=== PATIENT | male | born 1940 | race Caucasian/White ===

== ENCOUNTER → 2017-10-06 17:16 | Outpatient (CLI) | payer MEDICARE, OTHER, SELFPAY ==
[2017-04-04 15:22] VITALS: BMI 29.0
--- NOTE | 2017-10-06 17:21 | RAD_ITS ---
STUDY: X-RAY CHEST REASON FOR EXAM: Male, 77 years old. Cough. Positive for fluid. TECHNIQUE: PA and lateral views of the chest. COMPARISON: August 14, 2017 FINDINGS: The lungs are clear and expanded. There is no demonstrated pleural abnormality. Normal size heart. There are sternotomy wires in place. Normal mediastinum and raul. Normal visualized pulmonary arteries. Normal visualized aortic arch and descending thoracic aorta. There are mild degenerative changes of the thoracic spine. Normal visualized ribs, clavicles, and shoulders. There is no demonstrated abnormality of the visualized soft tissue structures of the upper abdomen. RAD/Chest PA and Lateral IMPRESSION: No acute cardiopulmonary process. Electronically Signed: Christi Bell MD at 18:51 EST Tel , Service support ,
== END ==
PROVIDERS: Family Provider Family Medicine; PCP Family Medicine; Visit Provider Family Medicine
DX: R05 Cough (principal); E11.9 Type 2 diabetes mellitus without complications
CPT/HCPCS: 71046

== ENCOUNTER → 2017-11-04 10:38 | Outpatient (CLI) | payer MEDICARE, OTHER, SELFPAY ==
[2017-04-04 15:22] VITALS: BMI 29.0
[2017-11-04 11:34] LABS: Hemoglobin A1c 7.5 % (4.2-6.3)
[2017-11-04 11:40] LABS: AST(SGOT) 15 U/L (15-37); Alanine Aminotransfer ALT/SGPT 18 U/L (16-61); Albumin, Serum 3.8 g/dL (3.2-5.0); Alkaline Phosphatase 64 U/L (45-117); Bilirubin, Direct 0.07 mg/dL (0.00-0.30); Cholesterol 211 mg/dL (200); Globulin 3.4 g/dL (2.2-4.2); High Density Lipoprotein 51 mg/dL; Protein, Total 7.2 g/dL (6.4-8.2); Triglycerides 229 mg/dL; Very Low Density Lipoprotein 46 mg/dL (5-40)
== END ==
PROVIDERS: Family Provider Family Medicine; PCP Family Medicine; Visit Provider Nurse Practitioner Family
DX: E11.9 Type 2 diabetes mellitus without complications (principal); E78.5 Hyperlipidemia, unspecified; Z79.899 Other long term (current) drug therapy
CPT/HCPCS: 36415; 80061; 80076; 83036

== ENCOUNTER → 2018-03-24 11:07 | Outpatient (CLI) | payer MEDICARE, OTHER, SELFPAY ==
[2017-04-04 15:22] VITALS: BMI 29.0
[2018-03-24 13:06] LABS: AST(SGOT) 16 U/L (15-37); Alanine Aminotransfer ALT/SGPT 20 U/L (16-61); Albumin, Serum 3.8 g/dL (3.2-5.0); Alkaline Phosphatase 62 U/L (45-117); Anion Gap 8 (5-15); BUN 19 mg/dL (7-18); Bilirubin, Direct 0.08 mg/dL (0.00-0.30); Calcium,Total 8.6 mg/dL (8.5-10.1); Chloride 104 mmol/L (98-107); Cholesterol 178 mg/dL (200); EST Glomerular Filtration Rate 77 mL/min (>60); Est Glom Filt Rate - Afr Amer 93 mL/min (>60); Globulin 3.3 g/dL (2.2-4.2); Glucose 125 mg/dL (74-106); High Density Lipoprotein 49 mg/dL; Potassium 4.2 mmol/L (3.5-5.1); Protein, Total 7.1 g/dL (6.4-8.2); Sodium Level 141 mmol/L (136-145); Thyroid Stim Hormone (TSH) 1.06 uIU/mL (0.358-3.74); Triglycerides 247 mg/dL; Very Low Density Lipoprotein 49 mg/dL (5-40)
== END ==
PROVIDERS: Nurse Practitioner Family; Family Provider Family Medicine; PCP Family Medicine; Visit Provider Family Medicine
DX: E11.9 Type 2 diabetes mellitus without complications (principal); E78.5 Hyperlipidemia, unspecified; Z79.899 Other long term (current) drug therapy
CPT/HCPCS: 80048; 80061; 80076; 84443

== ENCOUNTER 2018-05-05 11:00 | Outpatient (RCR) | payer MEDICARE, OTHER, SELFPAY ==
[2017-04-04 15:22] VITALS: BMI 29.0
--- NOTE | 2018-03-13 14:30 | HP.PTEVAL_ITS ---
Patient's Visit Information TODD ROSARIO is a 77 year old M referred to Physical Therapy by aSge Anderson with a diagnosis of gait abnormality. Date of Evaluation: 03/13/18 Physical Therapist: Rei Duval PT, - Visit Plan Frequency: 2-3x /Week Duration: 4 Weeks Plan: B LE strengtheing, balance and proprio, nustep, and HEP - Subjective Subjective: Pt reports he has noticed balance difficulty over the past 5 mos. Pt reports he has the most difficulty with standing after sitting for a long period of time. Pt reports he has steadily noticed improvements over the past 3 weeks, but pt notes he is still very nervous about falling. Pt reports he has not had any recent falls at this time, but notes he stumbles a lot. Pt reports he has good feeling in his feet, and notes he is not light headed and does not get dizzy on a normal day. Pt reports he has a lot of diff with walking through his yard. Pt also doesnt feel safe in his shower even though he does have grab bars. Pt reports occasional LBP, but none today. - Objective Neuro: B LE sensation is WNL to light touch. B patellar tendon reflex= 1/3. MMT : B LE's are 4/5 throughout. FGA: 37% disability CJ - Balance Scores Functional Gait Assessment Score: 19 % Disability: 36.6700 - Goals Goal 1:: Increase B LE strength x 1 grade to aid with stair negotiation Goal Time Frame: 4-6 Weeks Goal 2:: Increase FGA score x 15% to aid with preventing future stumbles Goal Time Frame: 4-6 Weeks Goal 3:: I with HEP Goal Time Frame: 4-6 Weeks - Rehabilitation Potential Physical Therapy Diagnosis: Pt has LE weakness and gait difficulty secondary to debilitation Rehabilitation Potential: Good - Anticipated Interventions Patient/Client Instruction: Educate patient on: Condition, Plan of Care For the Purpose of:: To improve self management Therapeutic Exercise to Include: Strength training, Endurance training, Balance training, Gait and locomotor training, Dynamic Lumbar Stabilization For the Purpose of:: To improve muscle performance and motor function, To increase tolerance to activity/condition/position, To improve gait and locomotor functions Thank you for the opportunity to evaluate your patient. For Medicare and Medicare HMO plans, please review the plan of care and approve it. It will need to be FAXED BACK to us at [phone] for Medicare purposes. Please let me know if there are questions or concerns regarding this plan of care. Physician Signature: Date:
--- NOTE | 2018-04-10 11:02 | HP.PTREVAL ---
Sage Anderson, It has been my pleasure to treat TODD ROSARIO over the last 10 visits for gait abnormality. Please see the progress note below for an update on the physical therapy plan of care! Subjective: Pt reports no pain this date Objective/Function: B LE strength now 4/5 throughout. Pt is progressing with balance, but notes occasional LOB with dynamic gait. Pt is progressing well toward Rx goals Plan Plan: cont 2x's per week x 4 weeks Goals Goal 1:: Increase B LE strength x 1 grade to aid with stair negotiation Goal Time Frame: 4-6 Weeks Goal 2:: Increase FGA score x 15% to aid with preventing future stumbles Goal Time Frame: 4-6 Weeks Goal 3:: I with HEP Goal Time Frame: 4-6 Weeks Anticipated Interventions Patient/Client Instruction: Educate patient on: Condition, Plan of Care For the Purpose of:: To improve self management Therapeutic Exercise to Include: Strength training, Endurance training, Balance training, Gait and locomotor training, Dynamic Lumbar Stabilization For the Purpose of:: To improve muscle performance and motor function, To increase tolerance to activity/condition/position, To improve gait and locomotor functions Please do not hesitate to contact me at [phone] by phone or if you have questions or concerns regarding this new plan of care! Sincerely, Rei Duval, PT,
--- NOTE | 2018-07-02 10:58 | HP.PT.NRP ---
HP - Discharge Summary (1) - Patient Information TODD ROSARIO was seen in my office for initial evaluation on 03/13/18. The following Plan of Care was established for this patient: Initial Frequency: 2-3x /Week Initial Duration: 4 Weeks - Anticipated Interventions Patient/Client Instruction: Educate patient on: Condition, Plan of Care For the Purpose of:: To improve self management Therapeutic Exercise to Include: Strength training, Endurance training, Balance training, Gait and locomotor training, Dynamic Lumbar Stabilization For the Purpose of:: To improve muscle performance and motor function, To increase tolerance to activity/condition/position, To improve gait and locomotor functions This patient was last seen in our office . Pertinent comments regarding their Physical therapy will appear below: Pt was treated for 16 visits for his gait abnormality through the date of 05/05/18. Pt has not returned through todays date and is therefore discontinued at this time. At this point I will be discontinuing this patient from physical therapy. I would be happy to see this patient again in the future if found appropriate by the physician. Thank you! Rei Duval, PT,
== END 2018-05-05 19:00 | disposition home or self-care (01) ==
LOC: PT 11:00
PROVIDERS: Family Provider Family Medicine; PCP Family Medicine; Visit Provider Family Medicine
DX: R26.89 Other abnormalities of gait and mobility (principal)
CPT/HCPCS: 97110; 97161; 97162; 97530; G8978; G8979

== ENCOUNTER → 2018-07-06 13:00 | Outpatient (CLI) | payer MEDICARE, OTHER, SELFPAY ==
[2017-04-04 15:22] VITALS: BMI 29.0
[2018-07-06 14:55] LABS: AST(SGOT) 18 U/L (15-37); Alanine Aminotransfer ALT/SGPT 24 U/L (16-61); Albumin, Serum 4.1 g/dL (3.2-5.0); Alkaline Phosphatase 57 U/L (45-117); Bilirubin, Direct 0.11 mg/dL (0.00-0.30); Cholesterol 172 mg/dL (200); Globulin 3.8 g/dL (2.2-4.2); High Density Lipoprotein 52 mg/dL; Protein, Total 7.9 g/dL (6.4-8.2); Triglycerides 153 mg/dL; Very Low Density Lipoprotein 31 mg/dL (5-40)
== END ==
PROVIDERS: Family Provider Family Medicine; PCP Family Medicine; Referring Provider Nurse Practitioner Family; Visit Provider Nurse Practitioner Family
DX: I25.10 Atherosclerotic heart disease of native coronary artery without angina pectoris (principal); I65.23 Occlusion and stenosis of bilateral carotid arteries; E78.5 Hyperlipidemia, unspecified; Z95.5 Presence of coronary angioplasty implant and graft
CPT/HCPCS: 36415; 80061; 80076

== ENCOUNTER → 2018-07-08 13:00 | Outpatient (CLI) | payer MEDICARE, OTHER, SELFPAY ==
[2017-04-04 15:22] VITALS: BMI 29.0
--- NOTE | 2018-07-08 13:02 | CDU_ITS ---
Reason For Study: vertigo Rt. Velocities/BP Lt. Velocities/BP Prox CCA 89.7/12.3 cm/sec. Prox CCA 155.0/18.9 cm/sec. Mid CCA 83.3/14.1 cm/sec. Mid CCA 103.0/13.5 cm/sec. Dist CCA 68.0/15.2 cm/sec. Dist CCA 80.9/15.2 cm/sec. Prox ICA 63.6/13.0 cm/sec. Prox ICA 51.9/11.0 cm/sec. Mid ICA 67.2/19.6 cm/sec. Mid ICA 85.6/21.1 cm/sec. Dist ICA 91.1/23.2 cm/sec. Dist ICA 104.0/22.5 cm/sec. Rt. ICA/CCA = 1.1. Lt. ICA/CCA = 104.0/103.0=1.0. Prox ECA 96.2/8.21 cm/sec. Prox ECA 123.0/7.62 cm/sec. Rt. Vert. 53.4/14.1 cm/sec. Lt. Vert. 63.6/11.0 cm/sec. Right Extracranial There is intimal thickening but no significant atherosclerotic plaque noted in the right common carotid artery. There is homogeneous, smooth atherosclerotic plaque noted in the right internal carotid artery. There is homogeneous, smooth atherosclerotic plaque noted in the right external carotid artery. Antegrade flow is noted in the right vertebral artery. Left Extracranial There is intimal thickening but no significant atherosclerotic plaque noted in the left common carotid artery. There is heterogeneous, smooth atherosclerotic plaque noted in the left internal carotid artery. There is no significant atherosclerotic plaque noted in the left external carotid artery. Antegrade flow is noted in the left vertebral artery. Procedure Carotid Duplex 28215. The exam was diagnostic. Exam performed in department. Interpretation Summary Minimal smooth plague at the proximal right internal carotid with <50% stenosis. Mild plague at the proximal right external carotid. Minimal smooth plague at the proximal left internal carotid with <50% stenosis Normal flow left external carotid Patent and antegrade vertebrals bilaterally Ordering Physician: Isidro Xiong Referring Physician: Sage Anderson Performed By: Rosalia Collazo RDCS, RVT
--- NOTE | 2018-07-08 13:02 | ECHOCS_ITS ---
Reason For Study: SOB Procedure This was a 2D Doppler, Color Flow transthoracic echocardiogram. Contrast injection was performed. Exam performed in department. Left Ventricle Normal LV size. The estimated ejection fraction is 50 %. Stage 1 diastolic dysfunction. [place] : Hypokinetic. Right Ventricle Normal RV size. Normal systolic function. Atria Normal left atrium. Normal right atrium. Mitral Valve Normal mitral valve. Mild (1+) eccentric mitral valve insufficiency. Tricuspid Valve Normal tricuspid valve. Mild (1+) tricuspid valve insufficiency. Pulmonary artery systolic pressure is 33 mmHg. Aortic Valve Normal aortic valve. Trisinus/trileaflet aortic valve. Pulmonic Valve Normal pulmonic valve. Great Vessels Normal aortic root. The pulmonary artery is normal size. Normal inferior vena cava. Pericardium/Pleural No pericardial effusion. Medication 22 gauge I.V. with prn adaptor inserted into right arm. Diluted definity 6ml given slow IV push to enhance endocardial definition. MMode/2D Measurements & Calculations LVIDd: 4.7 cm IVSd: 0.96 cm Ao root diam: 3.2 cm LVIDs: 3.1 cm LVPWd: 0.99 cm RVDd: 3.9 cm FS: 33.1 % LAV(MOD-sp4): 46.4 ml EDV(MOD-sp4): 87.3 ml EDV(MOD-sp2): 71.2 ml ESV(MOD-sp4): 34.6 ml EF(MOD-sp2): 69.1 % EF(MOD-sp4): 60.4 % SV(MOD-sp4): 52.7 ml SV(MOD-sp2): 49.2 ml LA A4 area: 17.2 cm2 LA dimension(2D): 4.7 cm RA A4 area: 15.2 cm2 Time Measurements MV dec time: 0.26 sec Doppler Measurements & Calculations MV E max michael: 49.4 cm/sec Lat Peak E' Michael: 10.8 cm/sec Med Peak E' Michael: 4.5 cm/sec MV A max michael: 68.0 cm/sec E/E' lat: 4.6 E/E' med: 10.9 MV E/A: 0.73 Ao V2 max: 99.3 cm/sec LV V1 max: 91.7 cm/sec PA V2 max: 86.5 cm/sec Ao max P.9 mmHg LV V1 max P.4 mmHg PI end-d michael: 100.8 cm/sec TR max michael: 263.2 cm/sec TR max P.8 mmHg Interpretation Summary Normal LV size. The estimated ejection fraction is 50 %. Stage 1 diastolic dysfunction. Mild (1+) eccentric mitral valve insufficiency. Mild (1+) tricuspid valve insufficiency. Pulmonary artery systolic pressure is 33 mmHg. Contrast injection was performed. Ordering Physician: Isidro Xiong/Luc Forde Referring Physician: STACY HEATON Performed By: Migdalia Oliver, SUNITHA, RVT
== END ==
PROVIDERS: Family Provider Family Medicine; PCP Family Medicine; Referring Provider Nurse Practitioner Family; Visit Provider Nurse Practitioner Family
DX: I65.23 Occlusion and stenosis of bilateral carotid arteries (principal); I25.10 Atherosclerotic heart disease of native coronary artery without angina pectoris; I10 Essential (primary) hypertension; R06.02 Shortness of breath; R06.00 Dyspnea, unspecified; R09.89 Other specified symptoms and signs involving the circulatory and respiratory systems; I25.2 Old myocardial infarction; Z95.5 Presence of coronary angioplasty implant and graft
CPT/HCPCS: 93306; 93880; Q9957; A4216; C8929

== ENCOUNTER → 2018-09-22 11:10 | Outpatient (CLI) | payer MEDICARE, OTHER, SELFPAY ==
[2017-04-04 15:22] VITALS: BMI 29.0
--- NOTE | 2018-09-22 11:20 | MRI_ITS ---
STUDY: MRI BRAIN WITH AND WITHOUT CONTRAST (ATTENTION INTERNAL AUDITORY CANALS - I.A.C.'s) REASON FOR EXAM: Male, 78 years old. tinnitus, asymetric hearing loss left ear. TECHNIQUE: Standardized multiplanar fat and water weighted pulse sequences were obtained. 9 ml of Gadavist contrast material was administered intravenously for the contrast portion of the examination. COMPARISON: None. FINDINGS: Normal bilateral temporal bones. Normal bilateral internal auditory canals. There is no demonstrated intracanalicular or cisternal vestibular schwannoma (acoustic neuroma). There is no enhancement of the bilateral VIIth or VIIIth cranial nerves. Normal bilateral cochlea, vestibules and semicircular canals. There is mild cerebral atrophy with widening of the extra-axial spaces and ventricular dilatation. There are multiple white matter hyperintensities, distributed throughout the deep white matter tracts of the cerebral hemispheres, consistent with moderate chronic white matter ischemic changes. Normal bilateral basal ganglia. Normal thalami. Normal flow voids within the major intracranial circulation suggesting patency by spin echo criteria. Normal venous enhancement. There is no enhancing intra-axial or extra-axial abnormality. There is no extra-axial fluid accumulation. Normal sella turcica, pituitary gland, infundibular stalk, optic chiasm and hypothalamus. Normal tectal plate and pineal gland. There are chronic white matter ischemic changes of the mariela. The midbrain and medulla are otherwise normal. Normal cerebellum. Normal basal cisterns. No demonstrated orbital abnormality, within the constraints of a routine brain study. Normal visualized paranasal sinuses. Normal calvarium and skull base. Normal visualized soft tissue structures. Normal visualized upper cervical spine. MRI/Brain W/WO Contrast IMPRESSION: There is no demonstrated intracanalicular or cisternal vestibular schwannoma (acoustic neuroma). Electronically Signed: Lynda France MD at 12:03 EST Tel , Service support ,
[2018-09-22 11:51] LABS: CREATININE FINGERSTICK 1.2 mg/dL (0.70-1.30)
== END ==
PROVIDERS: Family Provider Family Medicine; PCP Family Medicine; Referring Provider Otolaryngology Otolaryngology/Facial Plastic Surgery; Visit Provider Otolaryngology Otolaryngology/Facial Plastic Surgery
DX: H93.19 Tinnitus, unspecified ear (principal); H91.90 Unspecified hearing loss, unspecified ear
CPT/HCPCS: 70553; A9585

== ENCOUNTER → 2018-10-12 06:47 | Outpatient (CLI) | payer MEDICARE, OTHER, SELFPAY ==
[2017-04-04 15:22] VITALS: BMI 29.0
[2018-09-29 13:38] VITALS: BMI 29.1
--- NOTE | 2018-10-12 09:43 | STRESSREP ---
Stress Test Report Exercise myocardial perfusion stress test. 78-year-old man with a history of coronary artery disease status post angioplasty and stenting and bypass surgery in 2014. Medications: Levoxyl, Zoloft, aspirin, pravastatin, isosorbide, Plavix. Stress protocol: Resting EKG demonstrates normal sinus bradycardia with a rate of 53 bpm resting blood pressure 118/78 mmHg. The patient exercised according to regular Juan protocol for total duration of 6 minutes. The maximum heart rate attained was 146 bpm which was 102% of maximum predicted heart rate the maximum workload was 7 metabolic equivalents. Patient maintained sinus rhythm throughout the recording. At rest there were no ST or T wave changes noted suggest ischemia. At peak exercise upsloping ST changes only were noted with no meet the criteria for ischemia. The resting blood pressure 118/78 with a peak blood pressure 152/70 mmHg. No clinical angina was noted the rate pressure product was 21,800. Myocardial perfusion protocol. 11.6 mCi of technetium 99m sestamibi was injected at rest. Patient exercised according to regular Juan protocol for total duration of 6 minutes. At peak exercise 32.7 mCi of technetium 99m sestamibi was injected stress images were obtained stress and rest images were reconstructed and compared in the short axis vertical long horizontal long axis. Gated images were also obtained per Perfusion SPECT analysis: Review of the stress images demonstrate normal uptake of tracer noted in all areas of myocardium except for small portion of the apex the resting images demonstrate a similar pattern with minimal improvement in the apex suggesting a previous infarct at the apex with minimal laura-infarct ischemia. The other mcguire appear to be normally perfused. Gated SPECT analysis: The gated ejection fraction is noted to be 58%. Conclusion: Normal exercise myocardial perfusion stress test at a moderate workload. Preserved ejection fraction.
== END ==
PROVIDERS: Family Provider Family Medicine; PCP Family Medicine; Referring Provider Internal Medicine Cardiovascular Disease; Visit Provider Internal Medicine Cardiovascular Disease
DX: R07.9 Chest pain, unspecified (principal); Z95.1 Presence of aortocoronary bypass graft
CPT/HCPCS: 78452; 93017; A9500; A4216

== ENCOUNTER → 2018-10-15 12:17 | Outpatient (CLI) | payer MEDICARE, OTHER, SELFPAY ==
[2017-04-04 15:22] VITALS: BMI 29.0
[2018-09-29 13:38] VITALS: BMI 29.1
[2018-10-15 14:12] LABS: Erythrocyte Sedimentation Rate 24 mm/hr (0-20)
[2018-10-15 14:13] LABS: Hematocrit 40.8 % (40-54); Hemoglobin 13.6 g/dl (13.0-16.5); Mean Corp Hgb Conc 33.3 g/gl (32-36); Mean Corpuscular Hgb 31.9 pg (27.0-32.0); Mean Corpuscular Volume 95.6 fL (80-94); Mean Platelet Vol. 9.7 fl (6.2-12.0); Platelet Count 194 K/mm3 (150-450); RBC Distribution Width CV 13.6 % (11.6-14.6); RBC Distribution Width SD 46.9 fl (35.1-43.9); Red Blood Count 4.27 M/mm3 (4.6-6.2); White Blood Count 5.8 K/mm3 (4.4-11.0)
[2018-10-15 14:15] LABS: Scan Indicated on CBC? Y/N NO
[2018-10-15 14:25] LABS: Vitamin B12 501 pg/mL (211-911); Vitamin D,25 Hydroxy 18.4 ng/mL (29.95-100.01)
[2018-10-15 14:33] LABS: ALB/GLOB Ratio 1.1 RATIO (0.9-2.4); AST(SGOT) 15 U/L (15-37); Alanine Aminotransfer ALT/SGPT 19 U/L (16-61); Albumin, Serum 3.9 g/dL (3.2-5.0); Alkaline Phosphatase 70 U/L (45-117); Anion Gap 7 (5-15); BUN 23 mg/dL (7-18); BUN/Creat Ratio 23.3 RATIO (10-20); Calcium,Total 9.2 mg/dL (8.5-10.1); Chloride 104 mmol/L (98-107); Creatinine, Serum 0.99 mg/dL (0.70-1.30); EST Glomerular Filtration Rate 78 mL/min (>60); Est Glom Filt Rate - Afr Amer 94 mL/min (>60); Ferritin 65 ng/mL (26-388); Globulin 3.6 g/dL (2.2-4.2); Glucose 107 mg/dL (74-106); Iron 76 ug/dL (65-175); Potassium 4.2 mmol/L (3.5-5.1); Protein, Total 7.5 g/dL (6.4-8.2); Sodium Level 136 mmol/L (136-145); Thyroid Stim Hormone (TSH) 1.18 uIU/mL (0.358-3.74)
[2018-10-16 08:15] LABS: Hep C Antibodies <0.1 s/co ratio (0.0-0.9)
== END ==
PROVIDERS: Family Provider Family Medicine; PCP Family Medicine; Referring Provider Family Medicine; Visit Provider Family Medicine
DX: R53.83 Other fatigue (principal); Z11.59 Encounter for screening for other viral diseases
CPT/HCPCS: 80053; 82306; 82607; 82728; 83540; 84443; 85027; 85652; 86803

== ENCOUNTER → 2019-01-01 09:08 | Outpatient (CLI) | payer MEDICARE, OTHER, SELFPAY ==
[2017-04-04 15:22] VITALS: BMI 29.0
[2018-09-29 13:38] VITALS: BMI 29.1
[2019-01-01 11:15] LABS: HIV - WCH Non-Reactive (Nonreactive)
[2019-01-01 12:28] LABS: Color, Urine Yellow (Yellow); Glucose, Dipstick Normal (Normal); Ketone-Dipstick Negative (Negative); Leukocyte Esterase-Dipstick Negative /ul (Negative); Nitrite-Dipstick Negative (Negative); Occult Blood-Urine Negative /ul (Negative); Protein-Dipstick Negative (Negative); Specific Gravity, Urine 1.025 (1.002-1.030); Urine Bilirubin Dipstick Negative (Negative); Urine Clarity Clear (Clear); Urine Urobilinogen Normal (Normal)
[2019-01-01 13:52] LABS: Chlamydia Trachomatis by PCR Negative (Negative); Probe Check PASS; Sample Adequacy Control PASS; Specimen Processing Control PASS
== END ==
PROVIDERS: Family Provider Family Medicine; PCP Family Medicine; Referring Provider Family Medicine; Visit Provider Family Medicine
DX: R32 Unspecified urinary incontinence (principal); R30.0 Dysuria
CPT/HCPCS: 36415; 81002; 86703; 87086; 87491

== ENCOUNTER → 2019-02-16 15:33 | Outpatient (CLI) | payer MEDICARE, OTHER, SELFPAY ==
[2017-04-04 15:22] VITALS: BMI 29.0
[2018-09-29 13:38] VITALS: BMI 29.1
--- NOTE | 2019-02-16 15:37 | RAD_ITS ---
STUDY: X-RAY CHEST REASON FOR EXAM: Male, 78 years old. Cough for several weeks. TECHNIQUE: PA and lateral views of the chest. COMPARISON: October 06, 2017. FINDINGS: The lungs are clear and expanded. There is no demonstrated pleural abnormality. Sternal cerclage wires and vascular clips are present from a prior sternotomy and coronary artery bypass graft procedure (CABG). The heart is normal in size. Normal mediastinum and raul. Normal visualized pulmonary arteries. Normal visualized aortic arch and descending thoracic aorta. There are mild degenerative changes of the thoracic spine unchanged from prior exam. Normal visualized ribs, clavicles, and shoulders. There is no demonstrated abnormality of the visualized soft tissue structures of the upper abdomen. RAD/Chest PA and Lateral IMPRESSION: No acute cardiopulmonary disease or interval change. Electronically Signed: Navdeep Harrington DO at 16:46 EDT Tel [phone], Service support ,
== END ==
PROVIDERS: Family Provider Family Medicine; PCP Family Medicine; Referring Provider Family Medicine; Visit Provider Family Medicine
DX: J18.9 Pneumonia, unspecified organism (principal)
CPT/HCPCS: 71046

== ENCOUNTER → 2019-04-13 10:32 | Outpatient (CLI) | payer MEDICARE, OTHER, SELFPAY ==
[2017-04-04 15:22] VITALS: BMI 29.0
[2019-04-12 15:11] VITALS: BMI 30.5
[2019-04-13 11:54] LABS: AST(SGOT) 11 U/L (15-37); Alanine Aminotransfer ALT/SGPT 21 U/L (16-61); Albumin, Serum 3.6 g/dL (3.2-5.0); Alkaline Phosphatase 63 U/L (45-117); Bilirubin, Direct 0.09 mg/dL (0.00-0.30); Cholesterol 186 mg/dL (200); Globulin 3.4 g/dL (2.2-4.2); High Density Lipoprotein 56 mg/dL; Triglycerides 274 mg/dL; Very Low Density Lipoprotein 55 mg/dL (5-40)
== END ==
PROVIDERS: Family Provider Family Medicine; PCP Family Medicine; Referring Provider Nurse Practitioner Family; Visit Provider Nurse Practitioner Family
DX: E78.5 Hyperlipidemia, unspecified (principal)
CPT/HCPCS: 36415; 80061; 80076

== ENCOUNTER → 2019-09-23 11:13 | Outpatient (CLI) | payer MEDICARE, OTHER, SELFPAY ==
[2017-04-04 15:22] VITALS: BMI 29.0
[2019-04-12 15:11] VITALS: BMI 30.5
[2019-09-23 13:21] LABS: ALB/GLOB Ratio 1.2 RATIO (0.9-2.4); AST(SGOT) 11 U/L (15-37); Alanine Aminotransfer ALT/SGPT 20 U/L (16-61); Albumin, Serum 3.6 g/dL (3.2-5.0); Alkaline Phosphatase 64 U/L (45-117); Anion Gap 6 (5-15); BUN 24 mg/dL (7-18); BUN/Creat Ratio 21.4 RATIO (10-20); Calcium,Total 8.8 mg/dL (8.5-10.1); Chloride 107 mmol/L (98-107); Creatinine, Serum 1.12 mg/dL (0.70-1.30); EST Glomerular Filtration Rate 67 mL/min (>60); Est Glom Filt Rate - Afr Amer 81 mL/min (>60); Globulin 3.1 g/dL (2.2-4.2); Glucose 140 mg/dL (74-106); Potassium 4.4 mmol/L (3.5-5.1); Protein, Total 6.7 g/dL (6.4-8.2); Sodium Level 139 mmol/L (136-145); Thyroid Stim Hormone (TSH) 0.65 uIU/mL (0.358-3.74)
== END ==
PROVIDERS: PCP Family Medicine; Referring Provider Family Medicine; Visit Provider Family Medicine
DX: E11.9 Type 2 diabetes mellitus without complications (principal)
CPT/HCPCS: 36415; 80053; 84443

== ENCOUNTER 2019-11-30 15:40 | Emergency (ER) | payer MEDICARE, OTHER, SELFPAY ==
[2017-04-04 15:22] VITALS: BMI 29.0
[2019-10-19 13:34] VITALS: BMI 29.6
[2019-11-30 15:43] VITALS: BP 147/84; PULSE 88; RESP 18; TEMP 36.8; O2SAT 92; BMI 30.4
--- NOTE | 2019-11-30 16:07 | CT_ITS ---
STUDY: CT BRAIN WITHOUT CONTRAST REASON FOR EXAM: Male, 79 years old. Injury. Fell while jogging. RADIATION DOSAGE (If Supplied By Facility): CTDIvol = ( 44.99 ) mGy, DLP = ( 812.98 ) mGycm TECHNIQUE: Transaxial CT imaging of the brain was performed without administration of intravenous contrast material. Individualized dose optimization techniques were used for this CT. COMPARISON: MRI of the brain, September 22, 2018. FINDINGS: There is marked soft tissue swelling over the right maxilla with subcutaneous hematoma. The swelling extends upward into the right preseptal soft tissues and right frontal temporal region. The orbit appears intact. No obvious facial bone fracture. Normal calvarium. Normal size ventricles and extra-axial spaces for the patient''s age. There are areas of decreased attenuation within the white matter tracts of the supratentorial brain, consistent with microvascular disease changes. Normal basal ganglia and thalami. Normal brainstem. Normal cerebellum. There is no intracranial hemorrhage. There are no findings of an acute ischemic infarction. Minimal mucoperiosteal reaction in the right maxillary sinus. CT/Brain/Head without Contrast IMPRESSION: 1. Chronic embolus no changes without acute intracranial or calvarial abnormality. There is no major interval change. 2. A soft tissue injury to the right face and forehead. The right orbit is intact. There is no facial bone fracture. Electronically Signed: Navdeep Harrington DO at 16:52 EDT Tel [phone], Service support ,
--- NOTE | 2019-11-30 16:08 | EKG12_ITS ---
Test Reason : FALL Blood Pressure : / mmHG Vent. Rate : 081 BPM Atrial Rate : 081 BPM P-R Int : 192 ms QRS Dur : 086 ms QT Int : 398 ms P-R-T Axes : 052 058 068 degrees QTc Int : 462 ms Normal sinus rhythm Normal ECG Confirmed by NOMI MCGEE ([id number]), primer expeditor and drier HENRY LIU ([id number]) on 12/02/2019 10:12:54 AM Referred By: FELIX/VAMSHI Confirmed By:NOMI MCGEE
[2019-11-30 16:41] LABS: Absolute Lymphocyte Count 2.04 X10^3/uL (0.83-4.51); Absolute Neutrophil Count 4.3 X10^3/uL (2.0-7.7); Basophil# 0.05 X10^3/uL; Basophil% 0.7 % (0-1); Eosinophils% 2.8 % (0-5); Hematocrit 40.3 % (40-54); Hemoglobin 13.6 g/dL (13.0-16.5); Lymphocyte # 2.04 X10^3/ul (4.0); Mean Corp Hgb Conc 33.7 g/dL (32-36); Mean Corpuscular Hgb 31.4 pg (27.0-32.0); Mean Corpuscular Volume 93.1 fL (80-94); Mean Platelet Vol. 9.3 fl (6.2-12.0); Monocyte# 0.43 X10^3/uL; Monocyte% 6.1 % (0-10); NRBC Flagged by Analyzer 0 % (0-5); Neutrophil # 4.28 X10^3/uL (2.7-7.7); Platelet Count 202 K/mm3 (150-450); RBC Distribution Width CV 12.7 % (11.6-14.6); RBC Distribution Width SD 43.6 fl (35.1-43.9); Red Blood Count 4.33 M/mm3 (4.6-6.2)
[2019-11-30 16:48] LABS: Prothrombin Time (Protime)PT. 12.2 SECONDS (11.7-14.9)
[2019-11-30 16:49] LABS: Partial Thromboplast Time 26.3 Seconds (24.1-36.2)
[2019-11-30 16:57] LABS: ALB/GLOB Ratio 1.1 RATIO (0.9-2.4); AST(SGOT) 16 U/L (15-37); Alanine Aminotransfer ALT/SGPT 22 U/L (16-61); Albumin, Serum 3.9 g/dL (3.2-5.0); Alkaline Phosphatase 65 U/L (45-117); Anion Gap 4 (5-15); BUN 24 mg/dL (7-18); BUN/Creat Ratio 19.5 RATIO (10-20); Calcium,Total 9.1 mg/dL (8.5-10.1); Chloride 103 mmol/L (98-107); Creatinine, Serum 1.23 mg/dL (0.70-1.30); EST Glomerular Filtration Rate 60 mL/min (>60); Est Glom Filt Rate - Afr Amer 73 mL/min (>60); Estimated Creatinine Clearance 45.53 ml/min; Globulin 3.4 g/dL (2.2-4.2); Glucose 95 mg/dL (74-106); Potassium 3.9 mmol/L (3.5-5.1); Protein, Total 7.3 g/dL (6.4-8.2); Sodium Level 139 mmol/L (136-145)
[2019-11-30 17:12] VITALS: BP 170/87; PULSE 85; RESP 18; O2SAT 95
[2019-11-30] MEDS: Diphth,Pertuss(Acell),Tet Vac 0.5 ML Vial IM (17:19)
[2019-11-30 17:34] VITALS: O2SAT 95
[2019-11-30 18:15] VITALS: BP 162/101; PULSE 89; RESP 18; O2SAT 97
--- NOTE | 2019-11-30 18:17 | ED.VISSUMM ---
- ER Visit Summary Date of Service: 11/30/19 Chief Complaint: Fall History of Present Illness: The patient is a 79 M who presents after a fall that occurred today. EMS reports that the patient went jogging today when he fell and hit his head. Patient does not remember any of the events around the fall. Patient is unsure if he had any loss of consciousness. Patient continues to ask repetitive questions. Patient states his pain is localized to the right side of his head and right periorbital area. Patient describes it as burning. Patient denies any paresthesias or weakness. Patient denies any nausea or vomiting. Patient admits to some decreased vision out of his right eye due to the edema. Physical Examination: Vital signs are stable. Patient is afebrile. Patient is in no acute distress. Pupils are equal, round, and reactive to light bilaterally. Extraocular muscles are intact. There is a 1 cm linear laceration over the lateral aspect of the right eyebrow. There is mild bleeding. There is edema and ecchymosis of the right periorbital area. There is no bony crepitance or step-off noted. Oral mucosa is pink and moist. Neck is supple. Trachea is midline. There is no JVD. Heart was regular rate and rhythm. Lungs are clear and equal bilaterally. Abdomen is soft and nontender. Cranial nerves II through XII are intact. There are no focal motor or sensory deficits noted. Test Results: CT scan of the brain was obtained. There is no acute bleed or fracture. There is no orbital fracture. EKG showed normal sinus rhythm with a rate of 81. There are no acute ST or T wave changes. CBC, basic metabolic profile, PT with INR, PTT, and troponin were obtained and were all within normal limits. Emergency Department Course and Treatment: Pressure dressing was applied to the laceration. The laceration was cleaned with chlorhexidine. The laceration was closed with Dermabond skin adhesive. Patient tolerated procedure well. Patient was starting to remember more events today. Patient is still asking some repetitive questions but this is improving. Patient's states that he is starting to act more like his normal self. Patient and his are comfortable going home. Patient was given head injury instructions. Patient was given wound care instructions. Patient was instructed to return if worse in any way. Disposition: Discharge home Impression: 1. Concussion 2. Right eyebrow laceration This note was generated with Dragon dictation software. It may contain incorrect words, spelling, and punctuation that were not noted in review of the chart prior to signing ED Disposition - Plan for ED Patient: Disposition: Home or Assisted Living Diagnosis: Concussion, Laceration of right eyebrow Instructions: ED Concussion, ED Laceration Facial Skin Glue Referrals: Chad Anderson MD [Primary Care Provider] - 3-5 Days
[2019-11-30] MEDS: Acetaminophen 325 MG Tablet 1000 MG PO (18:52)
== END 2019-11-30 19:07 | disposition home or self-care (01) ==
PROVIDERS: Emergency Provider Emergency Medicine; PCP Family Medicine
DX: S06.0X9A Concussion with loss of consciousness of unspecified duration, initial encounter (principal); S01.111A Laceration without foreign body of right eyelid and periocular area, initial encounter; W18.39XA Other fall on same level, initial encounter; Y93.02 Activity, running; Y92.9 Unspecified place or not applicable; Y99.8 Other external cause status; Z79.82 Long term (current) use of aspirin; Z79.899 Other long term (current) drug therapy
CPT/HCPCS: 12011; 70450; 80053; 84484; 85025; 85610; 85730; 90471; 90715; 93005; 99285; A4216

== ENCOUNTER → 2020-05-01 09:38 | Outpatient (CLI) | payer MEDICARE, OTHER, SELFPAY ==
[2017-04-04 15:22] VITALS: BMI 29.0
[2020-05-01 12:42] LABS: Cholesterol 153 mg/dL (200); High Density Lipoprotein 50 mg/dL; Triglycerides 184 mg/dL; Very Low Density Lipoprotein 37 mg/dL (5-40)
== END ==
PROVIDERS: PCP Family Medicine; Referring Provider Family Medicine; Visit Provider Family Medicine
DX: E11.9 Type 2 diabetes mellitus without complications (principal)
CPT/HCPCS: 36415; 80061

== ENCOUNTER 2020-06-29 11:30 | Outpatient (RCR) | payer MEDICARE, OTHER, SELFPAY ==
[2017-04-04 15:22] VITALS: BMI 29.0
[2020-05-04 13:43] VITALS: BMI 29.2
--- NOTE | 2020-05-15 15:17 | HP.PTEVAL ---
Patient's Visit Information TODD ROSARIO is a 79 year old M referred to Physical Therapy by Dr. Chad Anderson MD with a diagnosis of Gait instability. Date of Evaluation: 05/15/20 Physical Therapist: Jonathan Rosales, RONENT, OCS, CSCS - Visit Plan Frequency: 2x /Week Duration: 4-6 Weeks Plan: Neurocom balance assessmetn then 2xweek for 4 weeks for LE strength in gym and vestibular balance and progress to I. - Subjective Felol one time in November forward. Body gets ahead of legs. Legs get tired if he walks too uch. This has been going on since November. [place] are difficult. Only fell the one time. Walks 3-4x/week one mile and gets tired. Getting around the house is no problem. Steps are no problem. No idzzyness, no neuropathy no pain. Getting around at home for the basics. Has steps and slow but no problem. Hasn'tdone much since covid but still has HP memnership, has been sleepign alot. - Objective Walks with short steps adn hesitant FW weight shift but safe and steady on firm flat surface. Transfers easily, cautious with weight on forefoot. Steps reciprocal up without rail bit weakness obvious down. - Balance Scores Functional Gait Assessment Score: 24 % Disability: 20.0000 - Goals Goal 1:: FGA to reduce fall risk. Goal Time Frame: 4-6 Weeks Goal 2:: I approp gym program for balance and strength Goal Time Frame: 4-6 Weeks Goal 3:: Neurocom balance test. Goal Time Frame: 4-6 Weeks - Rehabilitation Potential Physical Therapy Diagnosis: Gait instability, vestibular balance and LE weakness. Rehabilitation Potential: Fair - Anticipated Interventions Patient/Client Instruction: Educate patient on: Condition, Plan of Care For the Purpose of:: To improve muscle performance and motor function, To improve ability of physical actions for home/community/work/leisure Therapeutic Exercise to Include: Strength training, Balance training, Neuromotor development For the Purpose of:: To improve muscle performance and motor function, To increase tolerance to activity/condition/position, To improve ability of physical actions for home/community/work/leisure Thank you for the opportunity to evaluate your patient. For Medicare and Medicare HMO plans, please review the plan of care and approve it. It will need to be FAXED BACK to us at [phone] for Medicare purposes. For Medicare only, by signing this I certify the plan of care. Please let me know if there are questions or concerns regarding this plan of care. Physician Signature: Date:
--- NOTE | 2020-05-17 13:29 | HP.PTCOM_ITS ---
PT Communication Note 05/17/[address] Chad Anderson MD , Thank you for the referral of Arian to [facility] for balance assessment. I have enclosed a copy of the results for your review. In summation, he scored low on the vestibular portion of the Sensory Organization Test. he also scored low on excursion of forward and backward weight shifting. With these results in mind, I plan to see him 2x/week for 4 weeks to work on these deficits and strength of LE and progress to HEP. Pleased do not hesitate to cotnact me if there are questions regarding his testing. Sincerely, Jonathan Rosales, DPT, OCS, CSCS Contact Information
--- NOTE | 2020-06-15 12:54 | HP.PTREVAL ---
Dr. Chad Anderson MD, It has been my pleasure to treat TODD ROSARIO over the last 10 visits for Gait instability. Please see the progress note below for an update on the physical therapy plan of care! Subjective: Feeling better some. Walk farther and easier. Balance does not feel improved. On machines in gym and has file that he can continue on his own. Objective/Function: pt walks up right and with confidence today. strength LE 4/5. Steos with one rail down adn no rail up reciprocally showing improved strength. FGA score no higher than previously. Plan Plan: 2x/week for 2 weeks. Pt to do gym ex I 3x/week as member. Please focus in therapy on strictly balance ex (foam, FW weight shift, step ups, VOR walking, sidestepping, etc and progress to I ex with list when safe to add to gym ex. Goals appropr , fair [id number] to gain I. Goals Goal 1:: FGA to reduce fall risk. Goal Time Frame: 4-6 Weeks Goal Progress: Not Progressing, approp. Goal 2:: I approp gym program for balance and strength Goal Time Frame: 4-6 Weeks Goal Progress: gym,needs balance Goal 3:: Neurocom balance test. Goal Time Frame: 4-6 Weeks Goal Progress: Goal Met Anticipated Interventions Patient/Client Instruction: Educate patient on: Condition, Plan of Care For the Purpose of:: To improve muscle performance and motor function, To improve ability of physical actions for home/community/work/leisure Therapeutic Exercise to Include: Strength training, Balance training, Neuromotor development For the Purpose of:: To improve muscle performance and motor function, To increase tolerance to activity/condition/position, To improve ability of physical actions for home/community/work/leisure Please do not hesitate to contact me at [phone] by phone or if you have questions or concerns regarding this new plan of care! Sincerely, Jonathan Rosales, DPT, OCS, CSCS
--- NOTE | 2020-06-29 12:08 | HP.PTDCSUM_ITS ---
It has been my pleasure to treat TODD ROSARIO referred by Dr. Chad Anderson MD, with the diagnosis of Gait instability for a total of 14 visit(s). Discharge Date: 06/29/20 Please see the following information for a summary of their discharge status. Subjective: Doing well. Feels he can continue these exercises on his own with pics. Low back Pain Intensity (Out of 10): 0 % Improvement: 50 Objective/Function: performed ex with a challenge but safely at the bars. Emph asized safety at home or in functional area. Pt to continue strength in gym. +1 on FGa and ready to be on his own. Goal 1:: FGA to reduce fall risk. Goal Progress: Goal Met Goal 2:: I approp gym program for balance and strength Goal Progress: Goal Met Goal 3:: Neurocom balance test. Goal Progress: Goal Met Plan: d/c If there are questions or concerns regarding this patient's physical therapy, please feel free to call me at [phone]. Thank you for the referral of this patient. Sincerely, Jonathan Rosales, DPT, OCS, CSCS
== END 2020-06-29 19:00 | disposition home or self-care (01) ==
LOC: PT 11:30
PROVIDERS: PCP Family Medicine; Referring Provider Family Medicine; Visit Provider Family Medicine
DX: R26.89 Other abnormalities of gait and mobility (principal)
CPT/HCPCS: 97110; 97162; 97164; 97750

== ENCOUNTER → 2020-07-03 06:28 | Outpatient (CLI) | payer MEDICARE, OTHER, SELFPAY ==
[2017-04-04 15:22] VITALS: BMI 29.0
[2020-05-04 13:43] VITALS: BMI 29.2
--- NOTE | 2020-07-03 10:54 | STRESSREP ---
Stress Test Report Exercise myocardial perfusion stress test 79-year-old man with a history of coronary artery bypass surgery. Stress protocol: Resting EKG demonstrates sinus bradycardia with a rate of 52 bpm normal intervals are noted T wave inversion noted in aVL. Resting blood pressure is 120/70 mmHg. The patient exercised according to regular Juan protocol for 4 minutes and 16 seconds. The maximum heart rate attained was 144 bpm which was 102% of max impacted heart rate the maximum workload was 6.1 metabolic equivalents. Patient maintained sinus rhythm throughout the recording. At rest there were no ST or T wave changes noted to suggest ischemia at peak exercise upsloping ST changes were noted with no meet the criteria for ischemia. T wave inversions were noted the peak blood pressure was 160/60 mmHg. The test was terminated due to dyspnea and target heart rate being achieved. Myocardial perfusion protocol. 11.9 mCi of technetium 99m sestamibi was injected at rest. The patient exercised according to regular Juan protocol for 4 minutes and 16 seconds. At peak exercise 33.3 mCi of technetium 99m sestamibi was injected stress images were obtained stress and rest images were reconstructed and compared in the short axis vertical long horizontal long axis. Gated images were also obtained per Perfusion SPECT analysis: Review of the stress images demonstrate normal perfusion in all areas of the myocardium except for the apex with a small defect noted on the stress and rest images to a similar extent suggestive of an apical infarct. The lateral wall appears to be well perfused. No obvious reversibility is noted to suggest ischemia. Gated SPECT analysis: The gated ejection fraction is 57%. 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 No clinical angina noted. Preserved ejection fraction.
== END ==
PROVIDERS: PCP Family Medicine; Referring Provider Nurse Practitioner Family; Visit Provider Nurse Practitioner Family
DX: R07.9 Chest pain, unspecified (principal); R06.02 Shortness of breath; I25.10 Atherosclerotic heart disease of native coronary artery without angina pectoris; I10 Essential (primary) hypertension; E78.5 Hyperlipidemia, unspecified; Z95.5 Presence of coronary angioplasty implant and graft
CPT/HCPCS: 78452; 93017; A9500; A4216

== ENCOUNTER → 2020-11-01 10:55 | Outpatient (CLI) | payer MEDICARE, OTHER, SELFPAY ==
[2017-04-04 15:22] VITALS: BMI 29.0
[2020-05-04 13:43] VITALS: BMI 29.2
[2020-11-01 12:35] LABS: Hematocrit 41.3 % (40-54); Hemoglobin 13.6 g/dL (13.0-16.5); Mean Corp Hgb Conc 32.9 g/dL (32-36); Mean Corpuscular Hgb 32.5 pg (27.0-32.0); Mean Corpuscular Volume 98.8 fL (80-94); Mean Platelet Vol. 9.9 fl (6.2-12.0); Platelet Count 200 K/mm3 (150-450); RBC Distribution Width CV 13.1 % (11.6-14.6); RBC Distribution Width SD 47.4 fl (35.1-43.9); Red Blood Count 4.18 M/mm3 (4.6-6.2); White Blood Count 5.5 K/mm3 (4.4-11.0)
[2020-11-01 13:13] LABS: Vitamin B12 363 pg/mL (211-911); Vitamin D,25 Hydroxy 21.8 ng/mL
[2020-11-01 13:30] LABS: ALB/GLOB Ratio 1.2 RATIO (0.9-2.4); AST(SGOT) 8 U/L (15-37); Alanine Aminotransfer ALT/SGPT 19 U/L (16-61); Albumin, Serum 3.9 g/dL (3.2-5.0); Alkaline Phosphatase 55 U/L (45-117); Anion Gap 5 (5-15); BUN 27 mg/dL (7-18); BUN/Creat Ratio 26.5 RATIO (10-20); Calcium,Total 9.2 mg/dL (8.5-10.1); Chloride 103 mmol/L (98-107); Creatinine, Serum 1.02 mg/dL (0.70-1.30); EST Glomerular Filtration Rate 75 mL/min (>60); Est Glom Filt Rate - Afr Amer 90 mL/min (>60); Globulin 3.3 g/dL (2.2-4.2); Glucose 151 mg/dL (74-106); Potassium 3.9 mmol/L (3.5-5.1); Protein, Total 7.2 g/dL (6.4-8.2); Sodium Level 136 mmol/L (136-145); Thyroid Stim Hormone (TSH) 0.48 uIU/mL (0.358-3.74)
== END ==
PROVIDERS: PCP Family Medicine; Referring Provider Family Medicine; Visit Provider Family Medicine
DX: E11.59 Type 2 diabetes mellitus with other circulatory complications (principal); E55.9 Vitamin D deficiency, unspecified
CPT/HCPCS: 36415; 80053; 82306; 82607; 84443; 85027

== ENCOUNTER → 2021-02-01 11:00 | Outpatient (CLI) | payer MEDICARE, OTHER, SELFPAY ==
[2017-04-04 15:22] VITALS: BMI 29.0
[2021-01-16 13:10] VITALS: BMI 29.6
[2021-02-01 12:51] LABS: Vitamin B12 877 pg/mL (211-911); Vitamin D,25 Hydroxy 35.4 ng/mL
== END ==
PROVIDERS: PCP Family Medicine; Referring Provider Family Medicine; Visit Provider Family Medicine
DX: E55.9 Vitamin D deficiency, unspecified (principal); E53.8 Deficiency of other specified B group vitamins
CPT/HCPCS: 36415; 82306; 82607

== ENCOUNTER → 2021-02-12 14:55 | Outpatient (CLI) | payer MEDICARE, OTHER, SELFPAY ==
[2017-04-04 15:22] VITALS: BMI 29.0
[2021-01-16 13:10] VITALS: BMI 29.6
--- NOTE | 2021-02-12 14:58 | RAD_ITS ---
STUDY: X-RAY - LEFT ANKLE REASON FOR EXAM: Male, 80 years old. Ankle pain. TECHNIQUE: 3 view(s) of the ankle. COMPARISON: None. FINDINGS: Generalized osteopenia. Large superior and inferior calcaneal spurs. The soft tissue structures are unremarkable. RAD/Ankle min 3 Views IMPRESSION: Osteopenia with calcaneal spurs. No acute abnormality. Electronically Signed: Alo Berry MD at 9:59 EDT , Service support ,
== END ==
PROVIDERS: PCP Family Medicine; Referring Provider Nurse Practitioner Family; Visit Provider Nurse Practitioner Family
DX: M25.572 Pain in left ankle and joints of left foot (principal)
CPT/HCPCS: 73610

== ENCOUNTER → 2021-05-18 09:19 | Outpatient (CLI) | payer MEDICARE, OTHER, SELFPAY ==
[2017-04-04 15:22] VITALS: BMI 29.0
--- NOTE | 2021-05-18 09:24 | RAD_ITS ---
STUDY: X-RAY - CERVICAL SPINE REASON FOR EXAM: Male, 80 years old. CERVICALGIA TECHNIQUE: 7 view(s) of the cervical spine were obtained. COMPARISON: None FINDINGS: Normal anterior atlantoaxial articulation. Normal odontoid process. Normal cervical lordosis. No spondylolisthesis in flexion or extension. There is C5-C7 endplate spondylosis. There is C5-C7 degenerative disc disease with space narrowing. There is left-sided osseous foraminal stenosis from C5 to C7. The soft tissue structures are unremarkable. RAD/Cerv Spine Obl/Flex/Ext Comp IMPRESSION: Degenerative change most prominent from C5 C7 with left-sided neural foraminal stenosis. Electronically Signed: Rishabh Pearson MD at 1:13 EDT Tel , Service support ,
[2021-05-18 10:36] LABS: BNP,B-Type NATRIURETIC PEPTIDE 79.9 pg/mL (0-100)
[2021-05-18 10:40] LABS: Vitamin D,25 Hydroxy 34.5 ng/mL
[2021-05-18 10:54] LABS: AST(SGOT) 11 U/L (15-37); Alanine Aminotransfer ALT/SGPT 18 U/L (16-61); Albumin, Serum 3.8 g/dL (3.2-5.0); Alkaline Phosphatase 62 U/L (45-117); Anion Gap 5 (5-15); BUN 19 mg/dL (7-18); BUN/Creat Ratio 16.8 RATIO (10-20); Calcium,Total 8.9 mg/dL (8.5-10.1); Chloride 100 mmol/L (98-107); Cholesterol 176 mg/dL (200); Creatinine, Serum 1.13 mg/dL (0.70-1.30); EST Glomerular Filtration Rate 66 mL/min (>60); Est Glom Filt Rate - Afr Amer 80 mL/min (>60); Globulin 3.9 g/dL (2.2-4.2); Glucose 231 mg/dL (74-106); High Density Lipoprotein 52 mg/dL; Potassium 3.9 mmol/L (3.5-5.1); Protein, Total 7.7 g/dL (6.4-8.2); Sodium Level 135 mmol/L (136-145); Thyroid Stim Hormone (TSH) 0.53 uIU/mL (0.358-3.74); Triglycerides 271 mg/dL; Very Low Density Lipoprotein 54 mg/dL (5-40)
== END ==
PROVIDERS: PCP Family Medicine; Referring Provider Family Medicine; Visit Provider Family Medicine
DX: M54.2 Cervicalgia (principal); E55.9 Vitamin D deficiency, unspecified; E11.9 Type 2 diabetes mellitus without complications; R06.02 Shortness of breath
CPT/HCPCS: 36415; 72052; 80053; 80061; 82306; 83880; 84443

== ENCOUNTER 2021-06-20 10:30 | Outpatient (RCR) | payer MEDICARE, OTHER, SELFPAY ==
[2017-04-04 15:22] VITALS: BMI 29.0
--- NOTE | 2021-06-04 15:59 | HP.PTEVAL_ITS ---
Patient's Visit Information TODD ROSARIO is a 80 year old M referred to Physical Therapy by Dr. Chad Anderson MD with a diagnosis of DDD. Date of Evaluation: 06/04/21 Physical Therapist: Bambi Luis PT, Cert MDT - Visit Plan Frequency: 2-3x /Week Duration: 4-6 Weeks Plan: ULTRASOUND. POSTURE CORRECTION/STRENGTHENING, INSTRUCTION IN APPROPRIATE BODY MECHANICS AND ACTIVITY MODIFICATIONS. NOE UE ROM, STRETCHING AND STRENGTHENING. HEP INSTRUCTION. - Subjective Diagnosis: DDD. Work/Leisure: RETIRED. Present symptoms: LEFT NECK AND UPPER BACK PAIN. SOMETIMES GETS HEADACHES. Present since: ABOUT A YEAR OR TWO AGO. Pain Scale: Worst - 4/10 Least - 1/10. Currently: 10. Commenced as a result of: NO APPARENT REASON. Symptoms at onset: LEFT NECK. Worse: TURNING HEAD - ESPECIALLY TO THE LEFT. Better: ASPIRIN OR IBUPROFEN. Disturbed sleep: YES. Previous history/Previous treatment: UNREMARKABLE. NO NECK SURGERY. NO CHIROPRACTOR. NO INJECTIONS. Dizziness: NO. Tinnitis: NO. Nausea: NO. Shortness of Breath: SOME - NOT NEW. Difficulty Swollowing: NO. Gait: NO SUDDEN CHANGES BUT STATES HE HAS BEEN HAVING SOME BALANCE PROBLEMS FOR AWHILE THAT HE RELATES TO HIS AGE. Accidents: NO. Unexplained weight loss: NO. Imaging: see recent neck x-ray results below from [facility] EMR. PMH/Recent major surgery: SEE BELOW - RIGHT RCR WITHOUT FULL RECOVERY PER PATIENT REPORT. H/O RIGHT KNEE INJURY. STUDY: X-RAY - CERVICAL SPINE. REASON FOR EXAM: Male, 80 years old. CERVICALGIA. TECHNIQUE: 7 view(s) of the cervical spine were obtained. COMPARISON: None. . FINDINGS: Normal anterior atlantoaxial articulation. Normal odontoid process. Normal cervical lordosis. No spondylolisthesis in flexion or extension. There is C5- C7 endplate spondylosis. There is C5-C7 degenerative disc. disease with space narrowing. There is left-sided osseous foraminal. stenosis from C5 to C7. The soft tissue structures are unremarkable. . RAD/Cerv Spine Obl/Flex/Ext Comp. IMPRESSION: Degenerative change most prominent from C5 C7 with left-sided neural. foraminal stenosis. . Electronically Signed: Rishabh Pearson MD. at 1:13 EDT - Objective Sitting Posture/Standing Posture: POOR. FH. SH'S. Active Correction of posture: NE. Other Observations: INDEP GAIT AND TRANSFERS. Motor deficit: 25 LBS L [employer]. 35 LBS RIGHT . PATIENT IS RIGHT HAND DOMINANT. Sensory deficit: NOE UE LIGHT TOUCH SENSATION GROSSLY INTACT IN SYMMETRICAL. ROM deficit: NOE UE ROM WFL. Reflexes: 2/3 NOE UE'S. Dural Signs: NEGATIVE NOE UE'S. Cervical Mvmt Loss: Flex: MIN. Pro: NIL. Ext: MOD. Ret: BETY. RSB: MOD. LSB: MOD. R Rot: MOD. L Rot: MOD. PATIENT C/O INCREASED L NECK PAIN WITH CERVICAL ROM TESTING ESPECIALLY INTO FLEX, RETRACTION AND NOE SB'ING. Postural strength: POOR. Palpation: TENDERNESS WITH PALPATION OF LEFT UT REGION. INCREASED MUSCLE TONE OF NOE UT'S LEFT > RIGHT. TREATMENT: NEUROMUSCULAR REEDUCATION - RETRAINING OF MVMT AND POSTURE FOR SITTING, LYING AND STANDING ACTIVITIES. - Balance/Special Test Scores Oswestry Neck Score: 14 - Goals Goal 1:: DECREASE C/O LEFT NECK PAIN Goal Time Frame: 4-6 Weeks Goal 2:: IMRPOVE LIFTING, READING, SLEEP, DAILY WORK (BUT PATIENT STATES HE DOES NOT DO MUCH), RECREATIONAL AND DRIVING FUNCTION. Goal Time Frame: 4-6 Weeks Goal 3:: INSTRUCT IN PROPHYLAXIS Goal Time Frame: 4-6 Weeks - Anticipated Interventions Patient/Client Instruction: Educate patient on: Condition, Plan of Care, Risk Factors For the Purpose of:: To prevent re-injury Therapeutic Exercise to Include: Strength training, Body mechanics, Postural training, Flexibilty training, Neuromotor development, Scapular Strength/Stabilization For the Purpose of:: To decrease pain, To increase ROM, To improve muscle per formance and motor function, To increase tolerance to activity/condition/position, To improve ability of physical actions for home/community/work/leisure Cryotherapy (ice pack, ice massage): Yes Thermo therapy (hot pack): Yes Ultrasound (thermal/non thermal): Yes For the Purpose of:: To decrease pain, To improve nutrient delivery to tissue Thank you for the opportunity to evaluate your patient. For Medicare and Medicare HMO plans, please review the plan of care and approve it. It will need to be FAXED BACK to us at [phone] for Medicare purposes. For Medicare only, by signing this I certify the plan of care. Please let me know if there are questions or concerns regarding this plan of care. Physician Signature: Date:
--- NOTE | 2021-06-20 11:01 | HP.PTDCSUM_ITS ---
It has been my pleasure to treat TODD ROSARIO referred by Dr. Chad Heaton MD, with the diagnosis of DDD for a total of 8 visit(s). Discharge Date: 06/20/21 Please see the following information for a summary of their discharge status. Subjective: PATIENT REPORTS THE NEXT DAY AFTER THERAPY HE IS BETTER BUT THEN IT SEEMS TO GO BACK TO BEING BAD. DO HEP AND NO INCREASED PAIN WITH EX'S. FEELS THE EX'S ARE HITTING THE SPOT. DOES NOT WANT MORE EX'S AT THIS TIME. GOING TO CHECK WITH DR. HEATON ABOUT OTHER OPTIONS. DOES WANT TO TRY THE US AND STRETCH ING ONE LAST TIME TODAY. L NECK Pain Intensity (Out of 10): 1 % Improvement: 0 Objective/Function: NOT IMPROVING. MINIMAL CUEING NEEDED WITH NECK STRETCHES TODAY. TOLERATED MANUAL THERAPY WELL AND INDEP WITH HEP NOW. Goal 1:: DECREASE C/O LEFT NECK PAIN Goal Progress: Not Progressing Goal 2:: IMRPOVE LIFTING, READING, SLEEP, DAILY WORK (BUT PATIENT STATES HE DOES NOT DO MUCH), RECREATIONAL AND DRIVING FUNCTION. Goal Progress: Not Progressing Goal 3:: INSTRUCT IN PROPHYLAXIS Goal Progress: Not Progressing Plan: D/C DUE TO LACK OF PROGRESS. PATIENT AGREEABLE. If there are questions or concerns regarding this patient's physical therapy, please feel free to call me at [phone]. Thank you for the referral of this patient. Sincerely, Bambi Luis, PT, Cert MDT Balance/Gait/Functional tests - Balance/Special Test Scores Oswestry Neck Score: 14
== END 2021-06-20 13:53 | disposition home or self-care (01) ==
LOC: PT 10:30
PROVIDERS: PCP Family Medicine; Referring Provider Family Medicine; Visit Provider Family Medicine
DX: M50.323 Other cervical disc degeneration at C6-C7 level (principal)
CPT/HCPCS: 97035; 97110; 97112; 97140; 97162; 97530

== ENCOUNTER 2021-10-24 07:05 | Outpatient (CLI) | payer MEDICARE, OTHER, SELFPAY ==
[2017-04-04 15:22] VITALS: BMI 29.0
--- NOTE | 2021-10-24 17:30 | STRESSREP ---
Stress Test Report Exercise myocardial perfusion stress test. 81-year-old male with a history of known coronary artery disease and chest pain. Stress protocol: Resting EKG demonstrates normal sinus rhythm with a rate of 60 bpm normal intervals are noted resting blood pressure is 122/80 mmHg. The patient exercised according to the regular Juan protocol for total duration of 4 minutes and 15 seconds. Patient completed 1 minute and 15 seconds into stage II of the Juan protocol the maximum heart rate attained was 129 bpm which was 92% of max impact at heart rate the maximum workload was 7 metabolic equivalents. At rest there were no ST or T wave changes noted suggest ischemia and at peak exercise upsloping ST changes were noted with did not meet the criteria for ischemia. The patient did develop rate dependent bundle branch block with a IVR during recovery. There were also premature ventricular complexes noted with a triplet during recovery. No clinical angina was noted. The peak blood pressure was 160/78 mmHg. Myocardial perfusion protocol. 10.0 mCi of technetium 99m sestamibi was injected at rest. The patient exercised according to regular Juan protocol at peak exercise 33.1 mCi of technetium 99m sestamibi was injected stress images were obtained stress and rest images were reconstructed and compared in the short axis vertical long and horizontal long axis. Gated images were also obtained. Perfusion SPECT analysis: Review of the stress images demonstrate normal uptake of tracer noted in all areas of the myocardium except for the apex. The rest of the mcguire appear to be normally perfused. The resting images demonstrate a similar pattern with no reversibility suggesting ischemia. A previous apical infarct is noted. Gated SPECT analysis: The gated ejection fraction is 57%. Conclusion: Exercise myocardial perfusion stress test with no evidence of ischemia noted at a moderate workload. Previous apical infarct noted. Preserved ejection fraction.
== END 2021-10-24 23:59 | disposition home or self-care (01) ==
LOC: CVS 07:08
PROVIDERS: PCP Family Medicine; Referring Provider Internal Medicine Cardiovascular Disease; Visit Provider Internal Medicine Cardiovascular Disease
DX: I25.10 Atherosclerotic heart disease of native coronary artery without angina pectoris (principal); Z95.1 Presence of aortocoronary bypass graft
CPT/HCPCS: 78452; 93017; A9500; A4216

== ENCOUNTER 2021-11-22 10:57 | Outpatient (CLI) | payer MEDICARE, OTHER, SELFPAY ==
[2017-04-04 15:22] VITALS: BMI 29.0
--- NOTE | 2021-11-22 11:00 | RAD_ITS ---
STUDY: X-RAY CHEST REASON FOR EXAM: Male, 81 years old. COUGH TECHNIQUE: PA and lateral views of the chest. COMPARISON: 02/16/2019 FINDINGS: The lungs are clear and expanded. There is no demonstrated pleural abnormality. Normal size heart. Sternal wires and mediastinal surgical clips compatible with prior CABG. Normal visualized pulmonary arteries. Normal visualized aortic arch and descending thoracic aorta. There are diffuse degenerative changes of the visualized thoracic spine. Normal visualized ribs, clavicles, and shoulders. There is no demonstrated abnormality of the visualized soft tissue structures of the upper abdomen. RAD/Chest PA and Lateral IMPRESSION: No acute cardiopulmonary process. Electronically Signed: Leo Jones MD ([place]) at 7:37 EDT ,
[2021-11-22 12:30] LABS: Vitamin B12 686 pg/mL (211-911); Vitamin D,25 Hydroxy 49.3 ng/mL
[2021-11-22 12:51] LABS: AST(SGOT) 12 U/L (15-37); Alanine Aminotransfer ALT/SGPT 17 U/L (16-61); Albumin, Serum 3.6 g/dL (3.2-5.0); Alkaline Phosphatase 58 U/L (45-117); Anion Gap 4 (5-15); BUN 24 mg/dL (7-18); BUN/Creat Ratio 24.3 RATIO (10-20); Calcium,Total 9.5 mg/dL (8.5-10.1); Chloride 106 mmol/L (98-107); Cholesterol 172 mg/dL (200); Creatinine, Serum 0.99 mg/dL (0.70-1.30); EST Glomerular Filtration Rate 77 mL/min (>60); Est Glom Filt Rate - Afr Amer 94 mL/min (>60); Globulin 3.6 g/dL (2.2-4.2); Glucose 144 mg/dL (74-106); High Density Lipoprotein 54 mg/dL; Potassium 4.4 mmol/L (3.5-5.1); Protein, Total 7.2 g/dL (6.4-8.2); Sodium Level 136 mmol/L (136-145); Thyroid Stim Hormone (TSH) 0.61 uIU/mL (0.358-3.74); Triglycerides 162 mg/dL; Very Low Density Lipoprotein 32 mg/dL (5-40)
== END 2021-11-22 23:59 | disposition home or self-care (01) ==
LOC: MTLAB 10:59
PROVIDERS: PCP Family Medicine; Referring Provider Family Medicine; Visit Provider Family Medicine
DX: R05.9 Cough, unspecified (principal); E11.9 Type 2 diabetes mellitus without complications; E03.9 Hypothyroidism, unspecified; E55.9 Vitamin D deficiency, unspecified; F32.A Depression, unspecified
CPT/HCPCS: 36415; 71046; 80053; 80061; 82306; 82607; 84443

== ENCOUNTER → 2022-04-11 | Outpatient (CLI) | payer MEDICARE, OTHER, SELFPAY ==
[2017-04-04 15:22] VITALS: BMI 29.0
--- NOTE | 2022-04-11 15:07 | RAD_ITS ---
STUDY: X-RAY - UNILATERAL RIBS ( RIGHT ) REASON FOR EXAM: Male, 81 years old. Pleurodynia. Right rib pain. TECHNIQUE: 4 view(s) of the ribs. COMPARISON: None. FINDINGS: Normal visualized ribs without a demonstrated fracture. The visualized lung is clear and expanded. There is evidence of median sternotomy. There are marked degenerative changes of the right shoulder. RAD/Ribs Unil 2V No CXR IMPRESSION: Normal x-ray examination of the ribs. Electronically Signed: Navdeep Harrington DO at 21:19 EDT ,
--- NOTE | 2022-04-11 15:07 | RAD_ITS ---
STUDY: X-RAY - RIGHT ELBOW REASON FOR EXAM: Male, 81 years old. Fell yesterday. Right elbow pain. TECHNIQUE: 3 view(s) of the elbow. COMPARISON: None. FINDINGS: Normal visualized humerus, radius and ulna. Normal radiocapitellar and ulnotrochlear articulations. There is no acute fracture, dislocation or destructive osseous pathology. The soft tissue structures are unremarkable. RAD/Elbow min 3 Views IMPRESSION: No acute fracture or dislocation of the right elbow. Electronically Signed: Navdeep Harrington DO at 21:03 EDT ,
== END | disposition home or self-care (01) ==
LOC: MTRAD 15:02
PROVIDERS: PCP Family Medicine; Referring Provider Family Medicine; Visit Provider Family Medicine
DX: R07.81 Pleurodynia (principal); S59.901A Unspecified injury of right elbow, initial encounter; W19.XXXA Unspecified fall, initial encounter
CPT/HCPCS: 71100; 73080

== ENCOUNTER → 2022-04-17 | Outpatient (CLI) | payer MEDICARE, OTHER, SELFPAY ==
[2017-04-04 15:22] VITALS: BMI 29.0
[2022-04-28 11:46] LABS: Testosterone, % Free 2.65 % (1.50-4.20); Testosterone, Total 136 ng/dL (264-916)
== END | disposition home or self-care (01) ==
LOC: MFPLAB 12:29
PROVIDERS: PCP Family Medicine; Visit Provider Family Medicine
DX: R53.83 Other fatigue (principal)
CPT/HCPCS: 36415; 84402; 84403

== ENCOUNTER 2022-04-26 10:30 | Outpatient (RCR) | payer MEDICARE, OTHER, SELFPAY ==
[2017-04-04 15:22] VITALS: BMI 29.0
--- NOTE | 2022-01-28 08:45 | HP.PTEVAL_ITS ---
Patient's Visit Information TODD ROSARIO is a 81 year old M referred to Physical Therapy by Dr. Chad Anderson MD with a diagnosis of Balance Deficit. Date of Evaluation: 01/28/22 Physical Therapist: Radha Frederick DPT - Visit Plan Frequency: 2x /Week Duration: 4 Weeks Plan: Balance Assessment, Focus on LE and core strength/stabilization, proprioception and functional mobility. HEP Given IE: Standing Marching, Hip Abduction, Hip Extension, HR/TR, sit to stand, SLS - Subjective Patient reports that his gait is not normal and his balance is poor. When walking on an incline he starts to take shorter steps and then can't get back to a normal stride. He has a shuffling gait pattern. It has been going on for over 2 years but its getting a lot worse. He does not fall every day but has fallen at least once in the last month. He stumbles when he is outside and most of his falls are outside. Does use a cane sometimes- does not use at home. Does have a bad right knee- and achilles tendon pain in the left ankle. He uses a wedge on the left and that makes it better. He use to go to [employer] but hasn't bee attending regularly. His comes weekly and is trying to get him to come. They feel like its limiting their ability to do things outside ([employer], walking outside). He is normally pretty sedentary- sleeping and TV. Fully I with dressing, driving and bathing- he has limited his driving. When he falls he normally falls forwards. He wears shoes in the house- 2 story home- with hand rails. PMHx/Meds: addition of Wellbutrin- no other changes. - Objective Posture: FH, RS- can correct but does not maintain. Gait: wide GUTIERREZ- shuffling gait pattern- toes turned out- forward position. When given verbal cues he was able to take bigger steps. As he fatigues his steps get more shuffling. Stairs: asc with 2 HR- desc step to pattern with 2 HR- uncontrolled. HR/TR: able with UE A. SLS: weight shift but unable to take hands off plinth. Balance: see FGA. ROM: WFL. Strength: Ankle: 4+/5, Knee: 4+/5, Hip: Flexion: 4-/5, Abd: 4/5, Add: 4+/5, Extn: 4/5, IR/ER: 4-/5, Core: fair minus. Flex: HS: severe, Gastroc: severe - Balance/Special Test Scores Functional Gait Assessment Score: 9 % Disability: 70.0000 TUG Test Time Seconds: 12 30 Second Chair Rise Test Seconds: 9 - Goals Goal 1:: Patient will be I with HEP and progression Goal Time Frame: 4-6 Weeks Goal 2:: Patient will ambulate >300 feet with a normalized gait pattern and LRD Goal Time Frame: 4-6 Weeks Goal 3:: Patient will perform TUG less than 10 seconds with LRD Goal Time Frame: 4-6 Weeks Goal 4:: Patient will sit to stand 13x in 30 seconds to WFL for age range Goal Time Frame: 4-6 Weeks - Rehabilitation Potential Physical Therapy Diagnosis: Patient presents with hypomobility- she has decreased LE and core strength/stabilization, proprioception and muscular endurance leading to poor posture and increased difficulty with ADL's. Rehabilitation Potential: Fair - Anticipated Interventions Patient/Client Instruction: Educate patient on: Benefits of Fitness Program Therapeutic Exercise to Include: Strength training, Endurance training, Balance training, Coordination, Agility training, Body mechanics, Postural training, Flexibilty training, Gait and locomotor training, Dynamic Lumbar Stabilization, Scapular Strength/Stabilization For the Purpose of:: To improve muscle performance and motor function Thank you for the opportunity to evaluate your patient. For Medicare and Medicare HMO plans, please review the plan of care and approve it. It will need to be FAXED BACK to us at [phone] for Medicare purposes. For Medicare only, by signing this I certify the plan of care. Please let me know if there are questions or concerns regarding this plan of care. Physician Signature: Date:
--- NOTE | 2022-02-07 11:11 | HP.PTCOM ---
PT Communication Note 02/07/[address] Chad Anderson MD , Thank you for the referral of Arian to [facility] for balance assessment. i have enclosed a copy of the reults for your review. in summation, he scored low on the vestibular portion of the Sensory Organization Test. he scored poorly on the forward excursion in the Limits of Stability Tesdt. With these results in mind, I plan to add to his initial plan of care balance and gait exercises to address these issues. i have recommended assistive device for safe ambulation but he compliance will be an issue as he does not wish to use them at this time. Sincerely, RONEN TrotterT, OCS, CSCS Contact Information
--- NOTE | 2022-02-27 14:18 | HP.PTREVAL ---
Dr. Chad Anderson MD, It has been my pleasure to treat TODD ROSARIO over the last 7 visits for Balance Deficit. Please see the progress note below for an update on the physical therapy plan of care! Subjective: Patient reports that he was not here for 2 weeks due to COVID- he was tired and coughed a lot so he was unable to do anything physical. Patient reports his balance is not so good. He was walking with his the other day due to shuffling and balance issues. He feels that he can walk about a half a mile then he starts shuffling. He bought a cane and he feels that it helps some- for community distances. He has a [employer] membership. He feels that he would recommend increasing to 60 min to get more out of the sessions. He has no pain just weakness in the lower extremeties. Objective/Function: Posture: FH, RS- can correct but does not maintain. Gait: wide GUTIERREZ- shuffling gait pattern- toes turned out- forward position. When given verbal cues he was able to take bigger steps. As he fatigues his steps get more shuffling. Stairs: asc with 2 HR- desc step to pattern with 2 HR- uncontrolled. HR/TR: able with UE A. SLS: weight shift but unable to take hands off plinth. Balance: see FGA. ROM: WFL. Strength: Ankle: 4+/5, Knee: 4+/5, Hip: Flexion: 4-/5, Abd: 4/5, Add: 4+/5, Extn: 4/5, IR/ER: 4-/5, Core: fair minus. Flex: HS: severe, Gastroc: severe Plan Plan: 02/27/22: Work with patient to be I with gym program-focus on proprioception and functional mobility- gait with straight cane. 6 min walk test. Add to exercises FW weight shift ex adn vestibular challenges, include progression to gym strengthening. Include gait training with forward weight shift. Encourage use of AD but patient unwilling at this time. Focus on LE and core strength/stabilization, proprioception and functional mobility Balance/Gait/Functional tests - Balance/Special Test Scores Functional Gait Assessment Score: 9 % Disability: 70.0000 Lower Extremity Functional Score: 46 TUG Test Time Seconds: 12 Tug Test: <20 sec.=mostly independent 30 Second Chair Rise Test Seconds: 9 Goals Goal 1:: Patient will be I with HEP and progression Goal Time Frame: 4-6 Weeks Goal 2:: Patient will ambulate >300 feet with a normalized gait pattern and LRD Goal Time Frame: 4-6 Weeks Goal 3:: Patient will perform TUG less than 10 seconds with LRD Goal Time Frame: 4-6 Weeks Goal 4:: Patient will sit to stand 13x in 30 seconds to WFL for age range Goal Time Frame: 4-6 Weeks Anticipated Interventions Patient/Client Instruction: Educate patient on: Benefits of Fitness Program Therapeutic Exercise to Include: Strength training, Endurance training, Balance training, Coordination, Agility training, Body mechanics, Postural training, Flexibilty training, Gait and locomotor training, Dynamic Lumbar Stabilization, Scapular Strength/Stabilization For the Purpose of:: To improve muscle performance and motor function Please do not hesitate to contact me at [phone] by phone or if you have questions or concerns regarding this new plan of care! Sincerely, Radha Frederick DPT
== END 2022-04-26 19:00 | disposition home or self-care (01) ==
LOC: PT 10:30
PROVIDERS: PCP Family Medicine; Referring Provider Family Medicine; Visit Provider Family Medicine
DX: R26.89 Other abnormalities of gait and mobility (principal)
CPT/HCPCS: 97110; 97162; 97164; 97750

== ENCOUNTER → 2022-05-29 | Outpatient (CLI) | payer MEDICARE, OTHER, SELFPAY ==
[2017-04-04 15:22] VITALS: BMI 29.0
== END | disposition home or self-care (01) ==
LOC: MFPLAB 12:15
PROVIDERS: PCP Family Medicine; Referring Provider Family Medicine; Visit Provider Family Medicine
DX: R53.83 Other fatigue (principal)
CPT/HCPCS: 36415; 84403

== ENCOUNTER 2022-07-12 08:00 | Outpatient (RCR) | payer MEDICARE, OTHER, SELFPAY ==
[2017-04-04 15:22] VITALS: BMI 29.0
--- NOTE | 2022-06-06 14:02 | HP.PTEVAL ---
Patient's Visit Information TODD ROSARIO is a 81 year old M referred to Physical Therapy by JACQUELINE Martino with a diagnosis of Right Clav Fracture. Date of Evaluation: 06/06/22 Physical Therapist: Radha Frederick DPT - Visit Plan Frequency: 2x /Week Duration: 4 Weeks Plan: Right Clav Fracture- ROM and scapular s/s- modality of heat/ice - Subjective Patient reports that he took a spill about a week ago and broke his right collar bone. The pain comes and goes. He reports that its painful when he moves his right arm. The pain is located in the collar bone and radiates to the shoulder blade. No pain that radiates down the arm. Worst: 9/10 Agg: movement Eases: stop trying to move his arm. He is on a steroid to help with inflammation. Best: 0/10. Right hand dominate. He is unable to take his own shower and dress himself at this time. No issues with finger dexterity or racing board marker strength. He was not doing his balance exercises prior to his fall. They did not put him in a sling. They have not seen ortho. X-rays were taken at urgent care. RTC Repair on the right was was at least 10 years ago- no problems since then. He fell down the stairs at that point. - Objective Posture: Fh, RS- guarding of the right UE. Gait: no arm swing or trunk rotation on the right. Palpation: tender along distal clavicle, upper trap and into the medial scapula. ROM: Wrist/Hand: WNL, Elbow: Flexion: 130 degrees, Extn: 0 degrees, Shoulder AROM: Flexion: 25 degrees abd: 60 degrees ER: 10 degrees IR: Belt line PROM: Flexion: 90 degrees, Abd: 90 degrees, IR: belly, ER: 30 degrees with pain at end ranges. Strength: not tested at shoulder: Elbow: 4/5, Wrist: 4+/5, Optical Fabricator: fair - Balance/Special Test Scores Quick DASH Score: 75.0000 - Goals Goal 1:: Patient will be I with HEP and progression Goal Time Frame: 4-6 Weeks Goal 2:: Patient will demo full AROM of the right shoulder Goal Time Frame: 4-6 Weeks Goal 3:: Patient will report 80% improvement Goal Time Frame: 4-6 Weeks - Rehabilitation Potential Physical Therapy Diagnosis: Patient presents with hypomobility- he has decreased ROM, UE and scapular s/s and muscular endurance leading to poor posture and increased pain with ADL's. Rehabilitation Potential: Fair - Anticipated Interventions Patient/Client Instruction: Educate patient on: Benefits of Fitness Program Therapeutic Exercise to Include: Strength training, Endurance training, Coordination, Body mechanics, Postural training, Flexibilty training, Neuromotor development, Passive ROM, Active ROM, Dynamic Lumbar Stabilization, Scapular Strength/Stabilization For the Purpose of:: To improve muscle performance and motor function TENS: No Cryotherapy (ice pack, ice massage): Yes Thermo therapy (hot pack): Yes Ultrasound (thermal/non thermal): No Thank you for the opportunity to evaluate your patient. For Medicare and Medicare HMO plans, please review the plan of care and approve it. It will need to be FAXED BACK to us at [phone] for Medicare purposes. For Medicare only, by signing this I certify the plan of care. Please let me know if there are questions or concerns regarding this plan of care. Physician Signature: Date:
--- NOTE | 2022-07-12 08:27 | HP.PTDCSUM ---
It has been my pleasure to treat TODD ROSARIO referred by JACQUELINE Martino, with the diagnosis of Right Clav Fracture for a total of 10 visit(s). Discharge Date: Please see the following information for a summary of their discharge status. Subjective: Patient comes with today- they saw Augustine Jessica last week- who reports that he is doing okay. Patient reports that his shoulder is doing good- he still has a little bit of pain. Worst: 1/10 at rest and 1.5/10 with exercises. He is not supposed to lift more than #10- they are moving so that is an issue but he is following restrictions. R SH Pain Intensity (Out of 10): 1 % Improvement: 70 Objective/Function: Posture: FH, RS- no guarding of the right UE. Gait: good arm swing or trunk rotation on the right- using straight cane. Palpation: not tender ROM: Wrist/Hand: WNL, Elbow: WFL, Shoulder AROM: Flexion: 160 degrees abd: 160 degrees ER: 30 degrees IR: Belt line. Strength: Shoulder: 4+/5 Elbow: 5/5, Wrist: 5/5, Commercial Estimator: fair Goal 1:: Patient will be I with HEP and progression Goal 2:: Patient will demo full AROM of the right shoulder Goal 3:: Patient will report 80% improvement Plan: 07/12/22: Discharge to I HEP- pt plans to start walking at the [facility]- PT educated on importance of strength, balance and continued use of AD. Right Clav Fracture- ROM and scapular s/s- modality of heat/ice If there are questions or concerns regarding this patient's physical therapy, please feel free to call me at [phone]. Thank you for the referral of this patient. Sincerely, Radha Frederick, DPT Balance/Gait/Functional tests - Balance/Special Test Scores Quick DASH Score: 20.4526
== END 2022-07-12 11:22 | disposition home or self-care (01) ==
LOC: PT 08:00
PROVIDERS: PCP Family Medicine; Referring Provider Physician Assistant; Visit Provider Physician Assistant
DX: S46.911A Strain of unspecified muscle, fascia and tendon at shoulder and upper arm level, right arm, initial encounter (principal); X58.XXXA Exposure to other specified factors, initial encounter
CPT/HCPCS: 97110; 97140; 97164

== ENCOUNTER 2022-08-05 12:38 | Outpatient (CLI) | payer MEDICARE, OTHER, SELFPAY ==
[2022-06-07 10:13] VITALS: BMI 29.0
[2022-08-05 15:50] LABS: Vitamin B12 1716 pg/mL (211-911); Vitamin D,25 Hydroxy 48.4 ng/mL
[2022-08-05 16:10] LABS: ALB/GLOB Ratio 1.2 RATIO (0.9-2.4); AST(SGOT) 13 U/L (15-37); Alanine Aminotransfer ALT/SGPT 19 U/L (16-61); Albumin, Serum 3.6 g/dL (3.2-5.0); Alkaline Phosphatase 69 U/L (45-117); Anion Gap 6 (5-15); BUN 19 mg/dL (7-18); BUN/Creat Ratio 16.1 RATIO (10-20); Calcium,Total 9.1 mg/dL (8.5-10.1); Chloride 101 mmol/L (98-107); Creatinine, Serum 1.18 mg/dL (0.70-1.30); EST Glomerular Filtration Rate 63 mL/min (>60); Est Glom Filt Rate - Afr Amer 76 mL/min (>60); Globulin 3.1 g/dL (2.2-4.2); Glucose 159 mg/dL (74-106); Iron 83 ug/dL (65-175); Potassium 4.3 mmol/L (3.5-5.1); Protein, Total 6.7 g/dL (6.4-8.2); Sodium Level 137 mmol/L (136-145)
[2022-08-05 17:42] LABS: Hematocrit 40.7 % (40-54); Hemoglobin 13.3 g/dL (13.0-16.5); Mean Corp Hgb Conc 32.7 g/dL (32-36); Mean Corpuscular Hgb 32.3 pg (27.0-32.0); Mean Corpuscular Volume 98.8 fL (80-94); Mean Platelet Vol. 9.2 fl (6.2-12.0); Platelet Count 224 K/mm3 (150-450); RBC Distribution Width CV 12.7 % (11.6-14.6); RBC Distribution Width SD 45.5 fl (35.1-43.9); Red Blood Count 4.12 M/mm3 (4.6-6.2); White Blood Count 5.1 K/mm3 (4.4-11.0)
[2022-08-05 18:29] LABS: Erythrocyte Sedimentation Rate 18 mm/hr (0-20)
== END 2022-08-05 23:59 | disposition home or self-care (01) ==
LOC: MTLAB 12:39
PROVIDERS: PCP Family Medicine; Referring Provider Family Medicine; Visit Provider Family Medicine
DX: R53.83 Other fatigue (principal); E11.59 Type 2 diabetes mellitus with other circulatory complications; E55.9 Vitamin D deficiency, unspecified
CPT/HCPCS: 36415; 80053; 82306; 82533; 82607; 83540; 84443; 85027; 85652

== ENCOUNTER → 2022-08-21 | Outpatient (CLI) | payer MEDICARE, OTHER, SELFPAY ==
[2022-06-07 10:13] VITALS: BMI 29.0
--- NOTE | 2022-08-21 18:35 | MRI_ITS ---
STUDY: MRI BRAIN WITHOUT CONTRAST REASON FOR EXAM: Male, 82 years old. UNSTEADINESS ON FEET TECHNIQUE: Standardized multiplanar fat and water weighted pulse sequences were obtained. COMPARISON: November 30, 2019 HEMISPHERES, CEREBELLUM AND BRAINSTEM: 1. The cerebral parenchyma, ventricular system, subarachnoid spaces have normal configuration and density. There is a normal gyral pattern. There is normal manriquez/white differentiation. No midline shift.. 2. Advanced periventricular white matter disease likely small vessel ischemic changes without evidence for acute infarct. Chronic ischemic changes of the mariela 3. No intraparenchymal mass, hemorrhage, or acute territorial infarct. 4. Mild cerebellar atrophy. Normal,, basilar and suprasellar cisterns have normal appearance. No Chiari malformation. PITUITARY: Infundibulum and pituitary have normal configuration. Midline structures appear normal. CSF SPACES: Moderate atrophy.. Basal cisterns are patent. VESSELS: 1. There are normal flow voids noted in the great vessels at the skull base ORBITS AND PARANASAL SINUSES: 1. Postsurgical changes of the orbits.. 2. Paranasal sinuses are clear. BONY ELEMENTS: Bony elements of the cranial vault, facial skeleton and skull base have normal appearance. SCALP AND SOFT TISSUES: Normal appearance of the soft tissues of the scalp and the visualized face OTHER: None MRI/Brain without Contrast IMPRESSION: 1. Cerebral and cerebellar atrophy. Advanced periventricular white matter ischemic changes without evidence for acute infarct. Chronic ischemic changes of the mariela. 2. No radiographically significant sinus disease. Electronically Signed: Reed Walker MD at 19:36 EST ,
== END | disposition home or self-care (01) ==
LOC: MRI 18:06
PROVIDERS: PCP Family Medicine; Referring Provider Family Medicine; Visit Provider Family Medicine
DX: R26.81 Unsteadiness on feet (principal)
CPT/HCPCS: 70551

== ENCOUNTER → 2022-10-10 | Outpatient (CLI) | payer MEDICARE, OTHER, SELFPAY ==
[2022-06-07 10:13] VITALS: BMI 29.0
[2022-10-10 13:18] LABS: ALB/GLOB Ratio 1.2 RATIO (0.9-2.4); AST(SGOT) 13 U/L (15-37); Alanine Aminotransfer ALT/SGPT 20 U/L (16-61); Albumin, Serum 3.7 g/dL (3.2-5.0); Alkaline Phosphatase 61 U/L (45-117); Anion Gap 6 (5-15); BUN 23 mg/dL (7-18); BUN/Creat Ratio 21.5 RATIO (10-20); Calcium,Total 9.5 mg/dL (8.5-10.1); Chloride 105 mmol/L (98-107); Cholesterol 164 mg/dL (200); Creatinine, Serum 1.07 mg/dL (0.70-1.30); EST Glomerular Filtration Rate 70 mL/min (>60); Est Glom Filt Rate - Afr Amer 85 mL/min (>60); Globulin 3.2 g/dL (2.2-4.2); Glucose 130 mg/dL (74-106); High Density Lipoprotein 62 mg/dL; Potassium 4.7 mmol/L (3.5-5.1); Protein, Total 6.9 g/dL (6.4-8.2); Sodium Level 141 mmol/L (136-145); Thyroid Stim Hormone (TSH) 0.44 uIU/mL (0.358-3.74); Triglycerides 180 mg/dL; Very Low Density Lipoprotein 36 mg/dL (5-40)
== END | disposition home or self-care (01) ==
LOC: MFPLAB 11:16
PROVIDERS: PCP Family Medicine; Referring Provider Family Medicine; Visit Provider Family Medicine
DX: E11.9 Type 2 diabetes mellitus without complications (principal)
CPT/HCPCS: 36415; 80053; 80061; 84443

== ENCOUNTER → 2023-01-20 | Outpatient (CLI) | payer MEDICARE, OTHER, SELFPAY ==
[2022-06-07 10:13] VITALS: BMI 29.0
[2023-01-20 17:48] LABS: Absolute Neutrophil Count 3.2 X10^3/uL (2.0-7.7); Basophil# 0.07 X10^3/uL; Basophil% 1.2 % (0-1); Eosinophil# 0.18 X10^3/uL; Hemoglobin 12.5 g/dL (13.0-16.5); Lymphocyte % 36.3 % (19-41); Mean Corp Hgb Conc 32.9 g/dL (32-36); Mean Corpuscular Hgb 32.6 pg (27.0-32.0); Mean Corpuscular Volume 99.2 fL (80-94); Mean Platelet Vol. 9.5 fl (6.2-12.0); Monocyte% 6.6 % (0-10); NRBC Flagged by Analyzer 0 % (0-5); Neutrophil # 3.17 X10^3/uL (2.7-7.7); Neutrophil % 52.2 % (47-70); Platelet Count 213 K/mm3 (150-450); RBC Distribution Width CV 13.6 % (11.6-14.6); RBC Distribution Width SD 49.4 fl (35.1-43.9); Red Blood Count 3.83 M/mm3 (4.6-6.2); White Blood Count 6.1 K/mm3 (4.4-11.0)
[2023-01-20 18:04] LABS: Vitamin B12 372 pg/mL (211-911)
[2023-01-20 18:06] LABS: ALB/GLOB Ratio 1.1 RATIO (0.9-2.4); AST(SGOT) 18 U/L (15-37); Alanine Aminotransfer ALT/SGPT 18 U/L (16-61); Albumin, Serum 3.6 g/dL (3.2-5.0); Alkaline Phosphatase 55 U/L (45-117); Anion Gap 2 (5-15); BUN 25 mg/dL (7-18); BUN/Creat Ratio 21.4 RATIO (10-20); Calcium,Total 8.9 mg/dL (8.5-10.1); Chloride 106 mmol/L (98-107); Creatinine, Serum 1.17 mg/dL (0.70-1.30); EST Glomerular Filtration Rate 63 mL/min (>60); Est Glom Filt Rate - Afr Amer 77 mL/min (>60); Globulin 3.3 g/dL (2.2-4.2); Glucose 123 mg/dL (74-106); Potassium 4.5 mmol/L (3.5-5.1); Protein, Total 6.9 g/dL (6.4-8.2); Sodium Level 136 mmol/L (136-145); Thyroid Stim Hormone (TSH) 0.82 uIU/mL (0.358-3.74)
== END | disposition home or self-care (01) ==
LOC: MFPLAB 14:25
PROVIDERS: PCP Family Medicine; Visit Provider Family Medicine
DX: E53.8 Deficiency of other specified B group vitamins (principal); E11.9 Type 2 diabetes mellitus without complications; E55.9 Vitamin D deficiency, unspecified; E03.9 Hypothyroidism, unspecified
CPT/HCPCS: 36415; 80053; 82306; 82607; 84443; 85025

== ENCOUNTER 2023-02-19 12:30 | Outpatient (RCR) | payer MEDICARE, OTHER, SELFPAY ==
[2022-06-07 10:13] VITALS: BMI 29.0
--- NOTE | 2022-12-03 12:35 | HP.PTEVAL ---
Patient's Visit Information TODD ROSARIO is a 82 year old M referred to Physical Therapy by Dr. Beth Mtz MD with a diagnosis of vascular Parkinsonism and gait instability. Date of Evaluation: 12/03/22 Physical Therapist: MANNY Burkett - Visit Plan Frequency: 2x /Week Duration: 6 Weeks Plan: 2X/ week for 6 weeks for gait training (larger steps, smaller GUTIERREZ), LE strength, functional strength, walking up and down a grade WITH GAIT BELT AND ROLLATOR STATES HE CAN NOT CONTROL GOING DOWN A GRADE), dual tasking with HEP - Subjective reported that he had an MRI in Aug cause he had advanced white matter brain disease and saw a neurologist and saw Dr Mtz and that he does not have Parkinson's but Parkinsonism. Pt is having trouble with walking and balance. Sometimes he feels like he will fall. He has fallen but not in the last couple of months. He uses the cane when he goes out and uses the rollator sometimes. He does not use the cane in the apartment. reports that he has trouble with grades and goes down them super fast and can not stop and falls. When he walks his Quads do not feel strong. He reports no back problems. Stairs: he goes down sitting down or goes down sideways using a railing. He does not struggle rolling over in bed. Pt also has some dementia that goes along with the disease. Dr Rodgers also thinks there could be Lewy Body Dementia. He has been having L shoulder pain. - Objective Gait: Walks with WBOS and short stride (swing leg does not clear stance foot) walks with a strsight cane. occ veering. sit to stand: able to get up without arms with a little struggle. R hip flex 11.3 and L hip flex 10.4. R knee ext 21.2 and L 20. R knee flex 12.2 and 9.6. R hip abd 10.9 and 11.2. Supine to sit... he struggles to get up due to weak core. standing heel and toe raises. Sitting opp arm and leg.... has to really think about using opp arm and leg and when he does can complete X 3 in a row. FGA 9 - Balance/Special Test Scores Functional Gait Assessment Score: 9 % Disability: 70.0000 Lower Extremity Functional Score: 33 - Goals Goal 1:: I HEP Goal Time Frame: 4-6 Weeks Goal 2:: Improve balance on FGA (FGA AT EVAL 9) Goal Time Frame: 4-6 Weeks Goal 3:: Improve his leg strength (at eval: R hip flex 11.3 and L hip flex 10.4. R knee ext 21.2 and L 20. R knee flex 12.2 and 9.6. R hip abd 10.9 and 11.2). Goal Time Frame: 4-6 Weeks Goal 4:: Be able to go up and down the stairs recip with 1 hand rail Goal Time Frame: 4-6 Weeks Goal 5:: Be able to go up and down grades on the ground without losing control with CGA with rollator Goal Time Frame: 4-6 Weeks - Rehabilitation Potential Rehabilitation Potential: Good - Anticipated Interventions Patient/Client Instruction: Educate patient on: Condition, Plan of Care For the Purpose of:: To decrease pain, To increase ROM, To improve nutrient delivery to tissue, To improve muscle performance and motor function, To improve ability to perform ADL's, To increase tolerance to activity/condition/position, To improve performance and independence with ADL's, To decrease level of supervision to perform tasks, To improve ability of physical actions for home/community/work/leisure, To improve gait and locomotor functions, To improve health of tissue, To decrease soft tissue restriction, To increase flexibility/ROM, To improve endurance, To improve balance, To improve safety with gait Therapeutic Exercise to Include: Strength training, Endurance training, Balance training, Postural training, Gait and locomotor training, Neuromotor development, Passive ROM, Active ROM, Dynamic Lumbar Stabilization For the Purpose of:: To decrease pain, To increase ROM, To improve nutrient delivery to tissue, To increase oxygenation perfusion, To improve muscle performance and motor function, To improve ability to perform ADL's, To increase tolerance to activity/condition/position, To improve performance and independence with ADL's, To decrease level of supervision to perform tasks, To improve ability of physical actions for home/community/work/leisure, To improve gait and locomotor functions, To improve health of tissue, To decrease soft tissue restriction, To increase flexibility/ROM, To improve endurance, To improve balance, To improve safety with gait Functional Training to Include: Gait training For the Purpose of:: To improve nutrient delivery to tissue, To improve muscle performance and motor function, To improve ability to perform ADL's, To increase tolerance to activity/condition/position, To improve performance and independence with ADL's, To decrease level of supervision to perform tasks, To improve ability of physical actions for home/community/work/leisure, To improve gait and locomotor functions, To improve health of tissue, To decrease soft tissue restriction, To increase flexibility/ROM, To improve balance, To improve safety with gait Thank you for the opportunity to evaluate your patient. For Medicare and Medicare HMO plans, please review the plan of care and approve it. It will need to be FAXED BACK to us at [phone] for Medicare purposes. For Medicare only, by signing this I certify the plan of care. Please let me know if there are questions or concerns regarding this plan of care. Physician Signature: Date:
--- NOTE | 2023-01-15 19:11 | HP.PTREVAL ---
Dr. Beth Mtz MD, It has been my pleasure to treat TODD ROSARIO over the last 9 visits for vascular Parkinsonism and gait instability. Please see the progress note below for an update on the physical therapy plan of care! Subjective: Pt just got back from [place]. His reports that he is walking around the [place] at house with the rollator (1/4 mile). Pt would like more exercises in his legs as they do not feel strong. Objective/Function: Gait: If pt walks without his walker he walks with WBOS and arms outstretched and tells therapist that he is not as steady. Sit to stand: able to get out of a chair without the use of the UE's. LE MMT: R hip flex 13.5 and L hip flex 12.1. R knee ext 21.2 and L 20. R knee flex 12.2 and 9.6. R hip abd 15.1 and 17.2 Plan Plan: Work with down grades, LE strength, gait mechanics. 2X/ week for 6 weeks for gait training (larger steps, smaller GUTIERREZ), LE strength, functional strength, walking up and down a grade WITH GAIT BELT AND ROLLATOR STATES HE CAN NOT CONTROL GOING DOWN A GRADE), dual tasking with HEP Balance/Gait/Functional tests - Balance/Special Test Scores Functional Gait Assessment Score: 9 % Disability: 70.0000 Lower Extremity Functional Score: 33 Goals Goal 1:: I HEP Goal Time Frame: 4-6 Weeks Goal 2:: Improve balance on FGA (FGA AT EVAL 9) Goal Time Frame: 4-6 Weeks Goal 3:: Improve his leg strength (at eval: R hip flex 11.3 and L hip flex 10.4. R knee ext 21.2 and L 20. R knee flex 12.2 and 9.6. R hip abd 10.9 and 11.2). Goal Time Frame: 4-6 Weeks Goal Progress: Progressing Goal 4:: Be able to go up and down the stairs recip with 1 hand rail Goal Time Frame: 4-6 Weeks Goal Progress: Goal Met Goal 5:: Be able to go up and down grades on the ground without losing control with CGA with rollator Goal Time Frame: 4-6 Weeks Anticipated Interventions Patient/Client Instruction: Educate patient on: Condition, Plan of Care For the Purpose of:: To decrease pain, To increase ROM, To improve nutrient delivery to tissue, To improve muscle performance and motor function, To improve ability to perform ADL's, To increase tolerance to activity/condition/position, To improve performance and independence with ADL's, To decrease level of supervision to perform tasks, To improve ability of physical actions for home/community/work/leisure, To improve gait and locomotor functions, To improve health of tissue, To decrease soft tissue restriction, To increase flexibility/ROM, To improve endurance, To improve balance, To improve safety with gait Therapeutic Exercise to Include: Strength training, Endurance training, Balance training, Postural training, Gait and locomotor training, Neuromotor development, Passive ROM, Active ROM, Dynamic Lumbar Stabilization For the Purpose of:: To decrease pain, To increase ROM, To improve nutrient delivery to tissue, To increase oxygenation perfusion, To improve muscle performance and motor function, To improve ability to perform ADL's, To increase tolerance to activity/condition/position, To improve performance and independence with ADL's, To decrease level of supervision to perform tasks, To improve ability of physical actions for home/community/work/leisure, To improve gait and locomotor functions, To improve health of tissue, To decrease soft tissue restriction, To increase flexibility/ROM, To improve endurance, To improve balance, To improve safety with gait Functional Training to Include: Gait training For the Purpose of:: To improve nutrient delivery to tissue, To improve muscle performance and motor function, To improve ability to perform ADL's, To increase tolerance to activity/condition/position, To improve performance and independence with ADL's, To decrease level of supervision to perform tasks, To improve ability of physical actions for home/community/work/leisure, To improve gait and locomotor functions, To improve health of tissue, To decrease soft tissue restriction, To increase flexibility/ROM, To improve balance, To improve safety with gait Please do not hesitate to contact me at [phone] by phone or if you have questions or concerns regarding this new plan of care! Sincerely, Carmella Pineda MPT
--- NOTE | 2023-02-19 15:08 | HP.PTDCSUM ---
Discharge Summary D/C summary: It has been my pleasure to treat TODD ROSARIO referred by Dr. Beth Mtz MD, with the diagnosis of vascular Parkinsonism and gait instability for a total of 17 visit(s). Discharge Date: 02/19/23 Please see the following information for a summary of their discharge status. Subjective Subjective: Pt seeing his Dr today cause he hurt his R knee. reports that he is moving around the house better and leaves his cane a lot. He is using the rollator better. Pain R knee pain: Pain Intensity (Out of 10): 1 Overall Improvement % Improvement: 50 Objective Objective/Function: R hip flex 17.5 and L hip flex 21.5 R knee ext 21.2 and L 20 R knee flex 12.2 and 10.9 R hip abd 10.9 and 11.2. FGA: 9 Pt was able to walk up a slight grade and back down X 2 today with CGA without a cane (he forgot it at home) with slight hesitancy going down the grade Goals Goal 1:: I HEP Goal Progress: Goal Met Goal 2:: Improve balance on FGA (FGA AT EVAL 9) Goal 3:: Improve his leg strength (at eval: R hip flex 11.3 and L hip flex 10.4 R knee ext 21.2 and L 20 R knee flex 12.2 and 9.6 R hip abd 10.9 and 11.2). Goal Progress: Progressing Goal 4:: Be able to go up and down the stairs recip with 1 hand rail Goal Progress: Goal Met Goal 5:: Be able to go up and down grades on the ground without losing control with CGA with rollator Goal Progress: Goal Met Plan Plan: DC PT to PD class and some exercises in the gym I D/C Information Discharge Comments: DC PT to PD class and light I gym exercises d/c sentence: If there are questions or concerns regarding this patient's physical therapy, please feel free to call me at [phone]. Thank you for the referral of this patient. Sincerely, Carmella Pineda, MPT Balance/Gait/Functional tests Balance/Special Test Scores Functional Gait Assessment Score: 9 % Disability: 70.0000 Lower Extremity Functional Score: 32
== END 2023-02-19 19:00 | disposition home or self-care (01) ==
LOC: PT 12:30
PROVIDERS: PCP Family Medicine; Referring Provider Psychiatry & Neurology Neurology; Visit Provider Psychiatry & Neurology Neurology
DX: G21.4 Vascular parkinsonism (principal); R26.81 Unsteadiness on feet
CPT/HCPCS: 97110; 97161; 97530

== ENCOUNTER 2023-03-04 13:03 | Outpatient (RCR) | payer MEDICARE, OTHER, SELFPAY ==
[2022-06-07 10:13] VITALS: BMI 29.0
== END 2023-03-04 19:00 | disposition home or self-care (01) ==
LOC: PT 13:03
PROVIDERS: PCP Family Medicine; Referring Provider Orthopaedic Surgery; Visit Provider Orthopaedic Surgery
DX: M17.11 Unilateral primary osteoarthritis, right knee (principal); M25.561 Pain in right knee

== ENCOUNTER → 2023-07-01 | Outpatient (CLI) | payer MEDICARE, OTHER, SELFPAY ==
[2022-06-07 10:13] VITALS: BMI 29.0
[2023-07-01 13:13] LABS: Anion Gap 6 (5-15); BUN 23 mg/dL (7-18); BUN/Creat Ratio 17.2 RATIO (10-20); Calcium,Total 9.1 mg/dL (8.5-10.1); Chloride 105 mmol/L (98-107); Creatinine, Serum 1.34 mg/dL (0.70-1.30); EST Glomerular Filtration Rate 54 mL/min (>60); Est Glom Filt Rate - Afr Amer 66 mL/min (>60); Glucose 156 mg/dL (74-106); PSA,Total- Diagnostic 5.26 ng/mL (0.0-4.0); Potassium 4.6 mmol/L (3.5-5.1); Sodium Level 138 mmol/L (136-145); Vitamin B12 700 pg/mL (211-911)
== END | disposition home or self-care (01) ==
LOC: MFPLAB 10:14
PROVIDERS: PCP Family Medicine; Visit Provider Family Medicine
DX: E53.8 Deficiency of other specified B group vitamins (principal); E11.9 Type 2 diabetes mellitus without complications; N52.9 Male erectile dysfunction, unspecified; N40.0 Benign prostatic hyperplasia without lower urinary tract symptoms
CPT/HCPCS: 36415; 80048; 82607; 83036; 84153; 84403

== ENCOUNTER → 2023-09-02 | Outpatient (CLI) | payer MEDICARE, OTHER, SELFPAY ==
[2022-06-07 10:13] VITALS: BMI 29.0
[2023-09-02 12:51] LABS: Anion Gap 4 (5-15); BUN 18 mg/dL (7-18); BUN/Creat Ratio 13.7 RATIO (10-20); Chloride 107 mmol/L (98-107); Creatinine, Serum 1.31 mg/dL (0.70-1.30); EST Glomerular Filtration Rate 56 mL/min (>60); Est Glom Filt Rate - Afr Amer 67 mL/min (>60); Glucose 140 mg/dL (74-106); Potassium 4.6 mmol/L (3.5-5.1); Sodium Level 139 mmol/L (136-145)
== END | disposition home or self-care (01) ==
LOC: MFPLAB 11:17
PROVIDERS: PCP Family Medicine; Visit Provider Family Medicine
DX: N28.89 Other specified disorders of kidney and ureter (principal)
CPT/HCPCS: 36415; 80048

== ENCOUNTER → 2023-09-29 | Outpatient (CLI) | payer MEDICARE, OTHER, SELFPAY ==
[2022-06-07 10:13] VITALS: BMI 29.0
--- OUTSIDE RECORDS SUMMARY | 2023-09-29 12:00 | XMS RPT_ITS | CCD ---
Author Name Unknown Address [address] [place] [address] Organization [facility] Care Team Providers Care Cloth Coverer Name Role Phone Unavailable Primary Care Provider Stacy Thorpe MD Primary Care Provider Stacy Anderson MD Primary Care Provider Stacy Anderson MD Primary Care Provider TDOD GARCIA Attending Unavailable SHARITA MTZ Referring Unavailable BESSIE AN Attending Unavailable STACY ANDERSON Primary Care UnavailSHARITA Monique Referring Unavailable SHARITA MTZ Attending Unavailable STACY ANDERSON Primary Care UnavailSHARITA Monique Attending Unavailable TODD GARCIA Referring Unavailable TODD GARCIA Referring Unavailable Allergies Allergy Classification Reported Allergen(s) Allergy Type Date of Onset Reaction(s) Facility (5 sources) Promethazine Drug Allergy 9 [facility] (7 sources) Ragweed; Translations: [RAGWEED] Allergy to substance 3 Other: See Comments, Itching [facility] (1 source) Promethazine Drug Allergy 4 Mental Status Change [facility] Work Phone: (1 source) OTHER; Translations: [OTHER] Propensity to adverse reactions (disorder) 9 [facility] [facility] Medications Completed/Discontinued Medications Medication Drug Class(es) Dates Sig (Normalized) Sig (Original) aspirin 81 mg delayed release oral tablet (6 sources) Platelet Aggregation Inhibitor, Nonsteroidal Anti-inflammatory Drug Start: 10-10-2008 aspirin(HALFPRIN 81 MG TAB) Take one(1) tablet daily. 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; Translations: [Dementia with Lewy bodies] Chronic Other hereditary and degenerative nervous system conditions (3 sources) Impaired cognition; Translations: [Mild cognitive impairment, so stated] 05-29-2023 Chronic Other hereditary and degenerative nervous system conditions (1 source) Mild cognitive impairment, so stated; Translations: [Mild cognitive impairment] Onset: 09-16-2023 Chronic Other nervous system disorders (3 sources) Vascular parkinsonism; 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 Other nervous system disorders (1 source) Vascular parkinsonism; 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)] Onset: 09-16-2023 Chronic Other nervous system disorders (1 source) Ataxia; Translations: [Ataxia, unspecified] Episodic Other nervous system disorders (1 source) Abnormal gait; Translations: [Unsteadiness on feet] Episodic Other nutritional; endocrine; and metabolic disorders (1 source) Disorder of iron metabolism, unspecified; Translations: [Disorder of iron metabolism, unspecified] Onset: 09-25-2022 Chronic Parkinson`s disease (1 source) Parkinsonism; Translations: [Parkinson's disease] Chronic Past or Other Problems Problem Classification Problem Date Documented Da te Episodic/Chronic Allergic reactions (12 sources) Solar degeneration; Translations: [Other skin changes due to chronic exposure to nonionizing radiation] Onset: 04-01-2012 04-01-2012 Episodic Biliary tract disease (6 sources) Biliary calculus; Translations: [Cholelithiasis] Onset: 08-24-1998 12-12-2003 Episodic Other and unspecified benign neoplasm (6 sources) Melanocytic nevus of trunk; Translations: [Melanocytic nevi of trunk] Onset: 04-01-2012 04-01-2012 Episodic Other nervous system disorders (1 source) Ataxia, unspecified; Translations: [Ataxia] Onset: 11-19-2022 Episodic Other skin disorders (6 sources) Actinic keratosis; Translations: [Actinic keratosis] Onset: 01-29-2008 06-25-2010 Episodic Other skin disorders (6 sources) Solar lentigo; Translations: [Other melanin hyperpigmentation] Onset: 04-01-2012 04-01-2012 Episodic Other skin disorders (6 sources) Inflamed seborrheic keratosis; Translations: [Inflamed seborrheic keratosis] Onset: 04-19-2013 04-19-2013 Episodic Other skin disorders (6 sources) Stucco keratosis; Translations: [Acquired keratosis [keratoderma] palmaris et plantaris] Onset: 04-19-2013 04-19-2013 Episodic Other skin disorders (6 sources) Asteatosis cutis; Translations: [Xerosis cutis] Onset: 04-19-2013 04-19-2013 Episodic Other skin disorders (6 sources) Seborrheic keratosis; Translations: [Other seborrheic keratosis] Onset: 04-19-2013 04-19-2013 Episodic Results Test Name Value Interpretation Reference Range Facil ity Vital Signs Date Time Vital Sign Value Performing Clinician Ana Lilia cho 09-16-2023 12:45-0500 Body weight 85.87 kg Bessie An APRN.PARASITOLOGIST Work Phone: [facility] 09-16-2023 12:45-0500 Diastolic blood pressure 57 mm[Hg] Bessie An APRN.PARASITOLOGIST Work Phone: [facility] 09-16-2023 12:45-0500 Heart rate 66 /min Bessie An APRN.PARASITOLOGIST Work Phone: [facility] 09-16-2023 12:45-0500 Systolic blood pressure 103 mm[Hg] Bessie An APRN.PARASITOLOGIST Work Phone: [facility] 05-29-2023 11:40-0400 Body height 170.2 cm Sharita Mtz MD Work Phone: [facility] 05-29-2023 11:40-0400 Body weight 85.37 kg Sharita Mtz MD Work Phone: [facility] 05-29-2023 11:40-0400 Diastolic blood pressure 59 mm[Hg] Sharita Mtz MD Work Phone: [facility] 05-29-2023 11:40-0400 Heart rate 56 /min Sharita Mtz MD Work Phone: [facility] 05-29-2023 11:40-0400 SaO2% (BldA) [Mass fraction] 95 % Sharita Mtz MD Work Phone: [facility] 05-29-2023 11:40-0400 Systolic blood pressure 116 mm[Hg] Sharita Mtz MD Work Phone: [facility] 11-19-2022 15:11-0400 Diastolic blood pressure 48 mm[Hg] Sharita Mtz MD Work Phone: [facility] 11-19-2022 15:11-0400 Heart rate 62 /min Sharita Mtz MD Work Phone: [facility] 11-19-2022 15:11-0400 SaO2% (BldA) [Mass fraction] 94 % Sharita Mtz MD Work Phone: [facility] 11-19-2022 15:11-0400 Systolic blood pressure 108 mm[Hg] Sharita Mtz MD Work Phone: [facility] Encounters Encounter Date Encounter Type Care Provider Facility Start: 09-16-2023 End: 09-16-2023 ambulatory SHARITA MTZ Facility:[facility] Start: 09-16-2023 End: 09-16-2023 Patient encounter procedure Bessie An APRN.PARASITOLOGIST Work Phone: Neurology Plan of Treatment Date Care Activity Detail Author Start: 12-05-2029 Urine microalbumin profile DTaP,Tdap,Td Vaccine (4 - Td or Tdap) [facility] Start: 08-18-2023 Advance Directive Discussion Advance Directive Discussion [facility] Start: 08-18-2023 Depression Assessment Depression Assessment [facility] Start: 04-18-2023 Influenza vaccination INFLUENZA (#1) [facility] Start: 03-25-2023 Hemoglobin A1c measurement HbA1C [facility] Start: 03-25-2023 Hemoglobin A1c/Hemoglobin.total in Blood HBA1C [facility] Start: 08-18-2022 ADVANCE DIRECTIVE DISCUSSION ADVANCE DIRECTIVE DISCUSSION [facility] Start: 08-18-2022 DEPRESSION ASSESSMENT DEPRESSION ASSESSMENT [facility] Start: 07-02-2022 COVID-19 VACCINE (6 - Booster for Moderna series) COVID-19 VACCINE (6 - Booster for Moderna series) [facility] Start: 07-02-2022 COVID-19 VACCINE (6 - Moderna series) COVID-19 VACCINE (6 - Moderna series) [facility] Start: 2000 Hepatitis B Vaccine (1 of 3 - Risk 3-dose series) Hepatitis B Vaccine (1 of 3 - Risk 3-dose series) [facility] Start: 1990 SHINGRIX VACCINE (1 of 2) SHINGRIX VACCINE (1 of 2) [facility] Start: 1959 Urine microalbumin profile [facility] Start: 1958 Hepatitis B surface antibody level LDL CHOLESTEROL [facility] Start: 1950 3 comp foot exam completed DIABETIC FOOT EXAM [facility] Start: 1950 Diabetic foot examination Diabetic Foot Exam [facility] Start: 1950 Glaucoma screening Dilated Retinal Exam [facility] Start: 1950 Hepatitis B screening URINE ALBUMIN:CREATININE RATIO [facility] Start: 1950 Hepatitis C antibody, confirmatory test DILATED RETINAL EXAM [facility] Start: 1946 Pneumococcal Vaccine: 65+ (1 - PCV) Pneumococcal Vaccine: 65+ (1 - PCV) [facility] Start: 1946 PNEUMOCOCCAL: 65+ (1 - PCV) PNEUMOCOCCAL: 65+ (1 - PCV) [facility] End: 10-15-2024 MRI 3D POST PROCESSING MRI 3D POST PROCESSING Radiology Routine Cognitive impairment, mild, so stated 1 Occurrences starting 09/16/2023 until 10/15/2024 [facility] Work Phone: Payers Date Payer Category Payer Medicare [id number] 2022 Unknown MMO MMO MEDICARE SUPPLEMENT [id number] 2022-Present [phone] [address] [place] [address] Indemnity [id number] 2005 Medicare MEDICARE MEDICAR E A AND B [id number] 2005-Present [phone] [address] [address] [place] [address] Medicare [id number] 2005 Medicare [id number] Social History Date Type Detail Facility Start: 09-25-2022 Tobacco smoking stat us [facility]IS Ex-smoker [facility] End: 09-05-1978 History of tobacco use Current smoker [facility] End: 09-05-1978 History of tobacco use Cigarette Smoker [facility] Start: 11-19-2022 End: 09-16-2023 Alcohol intake Current drinker of alcohol (finding) [facility] Start: 1940 Sex Assigned At Not on file [facility] Start: 11-19-2022 End: 05-29-2023 History of Social function [facility] Start: 11-19-2022 End: 05-29-2023 Tobacco use panel [facility] National Score (1-10 0), lower number is lower risk 52 [facility] Clinical Notes 10-11-2008 to 09-16-2023 Niyah Killian OCCA - 09/16/2023 12:46 PM Bessie Chadwick APRN.CNP - 09/16/2023 12:30 PM ESTPatient Sharita Mace MD - 05/29/2023 12:19 PM EDT Note Date & Type Note Facility 09-16-2023 Note HNO ID: [id number] Author: BESSIE AN APRN.LISA Service: ? 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 Reason for consult: consulted by Dr. 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 Mtz on 05/29/2023: patient has experienced gait instability since 2019 and cognitive impairment with occasional hallucinations. Doctor Suspect vascular parkinsonism vs DLB or both. Sinemet can be helpful in DLB patients when potentially levodopa-responsive symptoms are present, consider for the future depending on course. Onset and progression: Per patient: I just don't remember things, short term memory. He denies word-finding difficulties. I know what I want to say but the words won't come out. Eventually the words come to me. He denies getting lost. He blames his right knee (osteoarthritis) for the falls. Per : She has not noticed any word-finding difficulties. She states patient gets lost if driving. also says patient can't keep track of appointments or information he is told about plans for the day. She states patient blames everything on his knee and is ignoring true cause of falls. Per son: Patient exhibits difficulty initiating speech and once he moves beyond the difficulty conversation is okay. Son states patient is not always aware of where he is -- may not recognize his surrounding. He can give directions to a place and does not recognize that he is at that place.. Son says the patient forgets what he is told in conversation within an hour of the talk. He needs a lot of reminders. He asks repetitive questions throughout the day. Son believes patient's memory issues began at the same time he started when he started falling. Son states patient's physical symptoms are stable compared to a year ago and cognition has declined over the last year - agrees Son wonders if some of the cognitive changes are related to stress as patient and recently sold their large country home and moved to apartment. Neuropsychiatric symptoms Memory: short-term memory complaints, repetitive questions, difficulty recognizing surroundings Language: difficulty initiating conversation, word-finding difficulties Change in personality: all three deny Socially inappropriate behavior: Son says yes - lost some of his social boundaries - joins social groups that he hasn't been invited to, over stays his welcome, talks to everybody Perseverative behaviors: no Change in eating habits:increased taste for sweets, food doesn't taste as good as it used to Physical changes: weaker, difficulty walking Depressive symptoms: yes - has had depression for most of his life (according to ), never laughs Anxiety symptoms: some situational - ex: are we going to arrive in time for appointment Apathy: no Hallucinations/Delusions: denies and family agrees Sleep: I can sleep almost anywhere . Feels rested when wakes up. states he sleeps late into the morning. Patient snores and wears Cpap. Patient and report one episode of acting out dream 2 years ago. Living Arrangement / Ability to function: Todd Ramirez currently resides in a private residence with his ADLs: needs reminders to bathe, all others independent Driving:no Finances:no Medications: no Cooking:yes Lewy Body Diagnostic Criteria (Tami et al 2017) Todd Ramirez meets McKeith 2017 criteria for possible Lewy body disease. Core clinical features present: - Parkinsonism Core clinical features NOT present: - Fluctuating cognition with pronounced variations in attention/alertness - Recurrent well formed visual hallucinations - REM sleep behavior disorder Supportive clinical features include: postural instability, repeated falls and apathy, anxiety, and depression. Supportive clinical features NOT present are: severe antispsychotic sensitivity, syncope or transient episodes of unresponsiveness, severe autonomic dysfunction, hyposomnia, non-visual hallucinations and systematized delusions. Family History: The patient family history includes Cancer in his father; Coronary Artery Disease in his father; pulmonary embolism in his mother. The patient He indicated that his mother is . He indicated that (more content not included)... [facility] 09-16-2023 Nurse Note Todd Ramirez is a 83 year old year old right handed man Accompanied by: spouse and son. 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 Diagnosis Vital Signs: BP 103/57 Pulse 66 Wt 85.9 kg (189 lb 4.8 oz) BMI 29.65 kg/m documented in this encounter [facility] 09-16-2023 History of Present illness Narrative Images from the original note were not included. 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 Reason for consult: consulted by Dr. 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 Mtz on 05/29/2023: patient has experienced gait instability since 2019 and cognitive impairment with occasional hallucinations. Doctor Suspect vascular parkinsonism vs DLB or both. Sinemet can be helpful in DLB patients when potentially levodopa-responsive symptoms are present, consider for the future depending on course. Onset and progression: Per patient: I just don't remember things, short term memory. He denies word-finding difficulties. I know what I want to say but the words won't come out. Eventually the words come to me. He denies getting lost. He blames his right knee (osteoarthritis) for the falls. Per : She has not noticed any word-finding difficulties. She states patient gets lost if driving. also says patient can't keep track of appointments or information he is told about plans for the day. She states patient blames everything on his knee and is ignoring true cause of falls. Per son: Patient exhibits difficulty initiating speech and once he moves beyond the difficulty conversation is okay. Son states patient is not always aware of where he is -- may not recognize his surrounding. He can give directions to a place and does not recognize that he is at that place.. Son says the patient forgets what he is told in conversation within an hour of the talk. He needs a lot of reminders. He asks repetitive questions throughout the day. Son believes patient's memory issues began at the same time he started when he started falling. Son states patient's physical symptoms are stable compared to a year ago and cognition has declined over the last year - agrees Son wonders if some of the cognitive changes are related to stress as patient and recently sold their large country home and moved to apartment. Neuropsychiatric symptoms Memory: short-term memory complaints, repetitive questions, difficulty recognizing surroundings Language: difficulty initiating conversation, word-finding difficulties Change in personality: all three deny Socially inappropriate behavior: Son says yes - lost some of his social boundaries - joins social groups that he hasn't been invited to, over stays his welcome, talks to everybody Perseverative behaviors: no Change in eating habits:increased taste for sweets, food doesn't taste as good as it used to Physical changes: weaker, difficulty walking Depressive symptoms: yes - has had depression for most of his life (according to ), never laughs Anxiety symptoms: some situational - ex: are we going to arrive in time for appointment Apathy: no Hallucinations/Delusions: denies and family agrees Sleep: I can sleep almost anywhere . Feels rested when wakes up. states he sleeps late into the morning. Patient snores and wears Cpap. Patient and report one episode of acting out dream 2 years ago. Living Arrangement / Ability to function: Todd Ramirez currently resides in a private residence with his ADLs: needs reminders to bathe, all others independent Driving:no Finances:no Medications: no Cooking:yes Lewy Body Diagnostic Criteria (Tami et al 2017) Todd Ramirez meets McKeith 2017 criteria for possible Lewy body disease. Core clinical features present: - Parkinsonism Core clinical features NOT present: - Fluctuating cognition with pronounced variations in attention/alertness - Recurrent well formed visual hallucinations - REM sleep behavior disorder Supportive clinical features include: postural instability, repeated falls and apathy, anxiety, and depression. Supportive clinical features NOT present are: severe antispsychotic sensitivity, syncope or transient episodes of unresponsiveness, severe autonomic dysfunction, hyposomnia, non-visual hallucinations and systematized delusions. Family History: The patient family history includes Cancer in his father; Coronary Artery Disease in his father; pulmonary embolism in his mother. The patient He indicated that his mother is . He indicated that his father is . He indicated that both of his sisters are alive. He indicated that his brother is alive. He indicated that his maternal grandmother is . He indicated that his maternal grandfather is . He indicated that his paternal grandmother is . He indicated that his paternal grandfather is . He indicated that his daughter is alive. He indicated that all of his three sons are alive. Family history of dementia:0 Family history of movement disorder:0 Social History: Education:high school Occupation: reports that he quit smoking about 45 years ago. His smoking use included cigarettes. He does not have any smokeless tobacco history on file. Alcohol Use: Yes (occasionally wine) has no history on file for drug use. Past Medical History: The patient has a past medical history of Coronary atherosclerosis of autologous vein bypass graft, Diabetes (HCC), Hypotestosteronism, Hypothyroidism, Mixed hyperlipidemia, and Personal history of colonic polyps. Is there a history of traumatic brain injury? no Past Surgical History: The patient has a past surgical history that includes past surgical history of; past surgical history of; colonoscopy flx dx w/collj spec when pfrmd (10/24/2009); colonoscopy flx dx w/collj spec when pfrmd; and heart surgery hx. Allergies: ALLERGIES Allergen Reactions Ragweed Other: See Comments Sneezing and itching eyes Phenergan [Other] Reaction: Confusion Medications: Current Outpatient Medications on File Prior to Visit Medication Sig buPROPion XL (WELLBUTRIN XL) 300 mg 24 hr tablet Take by mouth. tamsulosin (FLOMAX) 0.4 mg Take 0.4 mg by mouth. isosorbide dinitrate (ISORDIL) 30 mg tablet Take 30 mg by mouth twice daily. cholecalciferol, vitamin D3, (D3-5000 ORAL) Take by mouth. pravastatin (PRAVACHOL) 80 mg tablet Take 80 mg by mouth once daily. desoximetasone (TOPICORT) 0.25 % cream Apply to itching dermatitis rash spots lower legs selectively twice to three times per day until clear or much improved and then stop or taper off as able. (Patient not taking: Reported on 09/25/2022) aspirin(HALFPRIN 81 MG TAB) Take one(1) tablet daily. metformin hcl(GLUCOPHAGE 500 MG TAB) Take one(1) tablet twice daily. PLAVIX 75 MG TAB Take one(1) tablet daily. No current facility-administered medications on file prior to visit. Physicians: PMD: Stacy Anderson MD Patient-Entered Data: Patient-Reported No flowsheet data found. Activities of Daily Living (ADL) No flowsheet data found. PROMIS-10 No flowsheet data found. PHQ-9 No flowsheet data found.(0-4) minimal depression (5-9) mild depression (10-14) moderate depression (15-19) moderately severe depression (20-27) severe depression Full History of PHQ-9 Scores No flowsheet data found. Sleep No flowsheet data found. No flowsheet data found. Caregiver-Reported No flowsheet data found. Dementia Severity Rating Scale (DSRS) No flowsheet data found. 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 Pt states pain in right knee affects his walking Falls/injuries/accidents: none recently, history is positive for falls with injuries NEURO: SEE HPI General Medical Exam: General: Well-nourished appearing, NAD. Awake, alert. HEENT: Normocephalic/atraumatic. Mental Status Exam Orientation: alert, oriented to person, place, and time Appearance: normal grooming Eye contact: normal Facial expression: appropriate Psychomotor: normal - no tremor noted Speech/Language: unremarkable -can name, repeat with no dysarthria - difficulty initiating speech Mood: fine Affect: pleasant PDW:0 SI:0 Self-injurious behavior:0 Emotional state: good Thought Process: logical Thought Content: appropriate Hallucinations:denies Delusions:denies Judgment: impaired due to lack of insight Insight: fair Jarvis Cognitive Assessment (MoCA) Version 1 Total Score: 18/30 Visuospatial/Executive Alternating [place] Making: Patient successfully draws the pattern without drawing any lines that cross. (+1) Visuoconstructional Skills (Shape): Patient is unable to successfully complete the task. (0) Visuoconstructional Skills (Clock): Normal Visuospatial/Executive Score: 4/5 Naming The patient was able to name: Camel or Dromedary, Lion Naming Score: 2/3 Memory Trials Memory Trial (1): The patient was able to correctly register: 2/5 Memory Trial (2): The patient was able to correctly register: 2/5 Attention Forward Digit Span: Correct (+1) Backward Digit Span: Correct (+1) Vigilance: Correct (+1) Attention - Serial 7's: (2 or 3) Correct subtractions (+2) Attention Score: 5/6 Language Sentence Repetition (1): Incorrect (0) Sentence Repetition (2): Incorrect (0) Verbal Fluency: Patient produced 8 words. (+0) Language Score: 0/3 Abstraction Abstraction (1): Patient successfully related similarity. (+1) Abstraction (2): Patient successfully related similarity. (+1) Abstraction Score: 2/2 Delayed Recall Word 1: Required multiple choice- 'nose, face, hand' (0) Word 2: Required multiple choice- 'snow, cotton, velvet' (0) Word 3: Required multiple choice- 'nondenominational, school, hospital' (0) Word 4: Required category cue- 'type of flower' (0) Word 5: Required multiple choice- 'red, blue, green' (0) Delayed Recall Score: 0/5 Orientation The patient was able to answer correctly: month, year, day of the week, exact place (name of hospital, clinic, office), city. Orientation Score: 5/6 Education less than or equal to 12th grade: +0 Semantic Fluency Patient produced 11 words. MoCA Past Scores MoCA 09/16/2023 MOCA TOTAL SCORE 18 out of 30 Visuospatial/ Executive 4 Naming 2 Attention 5 Language 0 Abstraction 2 Delayed Recall 0 Orientation 5 Education Level 0 Vital Signs: There were no vitals taken for this visit. Neurologic Exam: Dr. Todd Garcia (Neurology, Psychiatry) 09/25/22: 82 year-old man with abnormal gait and falls. He has features of rigidity and postural instability, which are suggestive of parkinsonism. 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 -blood tests to eval for alternative causes of ataxia and neuropathy -refer to [facility], Dr. Mtz at [place] -I recommended a [employer] rollator for gait assit Cranial Nerves: CN II: Visual sutton full to confrontation CN III, CN IV, CN : PERRLA. Normal smooth pursuits. No square wave jerks. Eye motility findings Right Left Upgaze Normal Normal Lateral gaze Normal Normal Medial gaze Normal Normal Down-gaze Normal Normal CN V: Intact sensation to light touch in all three divisions of the trigeminal nerves bilaterally CN VII: Face symmetric, no ptosis or facial droop CN VIII: Auditory acuity intact CN IX/CN X: Normal palate elevation CN XI: Normal shoulder shrug CN XII: Normal tongue strength and range of motion; no deviation, atrophy or fasciculations Motor Exam: Positive for cog-wheeling. No rest tremor. No significant postural or intention tremor. No bradykinesia with finger tapping bilaterally. . No abnormal movements, jerks. Power 5/5 in UE's bilaterally. LE's 5/5 throughout as well. Sensory: Intact to light touch in all extremities. Pinprick, vibration, and proprioception not assessed. 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 Sharita Mtz at [facility]. Patient referred for memory complaints. Reviewed labs and MRI with patient and family. Evaluated with [facility]y Body Diagnostic Criteria work list. 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 Recommended starting donepezil and having volumetric MRI. Will follow up after MRI completed. Plan: Aricept/donepezil 5mg x 4 weeks then 10mg daily Discussed side effects of donepezil: insomnia, GI upset Volumetric MRI ordered I spent a total of 60 minutes on the date of service which included chart, medication and lab review, [id number] patient care and counseling and educating the patient and his family. CC: 1. Stacy Anderson MD, (fax) [phone] documented in this encounter [facility] 09-16-2023 Instructions Bessie An APRN.LISA - 09/16/2023 12:12 PM EST Thank you for coming in today. It was wonderful talking with you. Today we discussed: # We recommended that you take Donepezil (Aricept) 5mg tab once a day for the first 4 weeks, then increase the dose to 10mg once per day. It is better to take Donepezil with breakfast or lunch. Aricept is well tolerated, although some people may experience nausea, diarrhea, not sleeping well, vomiting, muscle cramps, feeling tired, or not wanting to eat. These side effects were usually mild and temporary. If symptoms continue or become severe, you should stop the medication and contact us. # We recommend you have a volumetric MRI done. Please follow up a few weeks after the MRI is complete Ways to keep your brain healthy: -Stay social. Staying social and connected is extremely important for brain health. Some studies have shown that those with significant social interaction have experienced a slower rate of memory decline. -Stay active. Regular exercise has been shown to be helpful for the brain as well as the body! There is no specific activity in particular (ex. walking, swimming, elliptical machine, cycling, Kip Chi, etc.). Even regular walking is good exercise! Working out with other people may help you stay on track and allow you to maintain being social! -Eat a healthy diet. Mediterranean diet has proven to be very effective. Add as much color to your plate as possible. -Keep your brain active. It makes for a healthier, happier lifestyle. Some things that can keep your brain active include: Reading Playing cards Brain games or apps such as Lumosity Puzzles, word jumble games Hobbies Listening to music, going to concerts (if able) Going to art museums and galleries documented in this encounter [facility] 05-29-2023 Note HNO ID: [id number] Author: Sharita Mtz MD Service: ? Author Type: Physician Type: Progress Notes Filed: 05/29/2023 12:21 PM Note Text: [facility] - FOLLOW UP EVALUATION Stacy Anderson MD [address] [facility] [id number] Dear Stacy Anderson MD: I had the pleasure of seeing Mr. Ramirez for follow-up today. As you know he is a 82 year old right-handed male with a history of parkinsonism since 2019. He is seen with his and son. Subjective Previous Plan-11/19/2022 Visit: PT, exercise - Interval History: Did PT over the summer. He didn't find it particularly helpful. Sometimes does the exercises. Goes the exercise classes. Waiting for them to get hard. Wants to get better. notes he often isn't seeing things correctly. Movement Disorders Medications Schedule - as of the start of the visit: Medications Questionnaires: In addition, the following areas that may be affected by abnormal involuntary movements were evaluated: Daily activities Difficulties with eating: ok Difficulties in dressing: ok Difficulties with hygiene activities: ok Difficulties with handwriting: Difficulties with doing hobbies and other activities: water colors Difficulties turning in bed: no Difficulties getting out of bed, car or chair: sometimes car. Tremors/Gait/Balance Shaking or tremors: no Walking and balance problems: imbalance Number of falls in the Last Month: no Gait freezing: Autonomic/Pain Lightheadeness on standing: no Urinary problems: urgency and makes it most of the time Constipation problems: no Pain and other sensations: Speech/Swallowing Speech problems: Drooling: no Chewing and swallowing problems: no Sleep/Fatigue Sleep problems: no Daytime sleepiness: Fatigue: In addition, the following non-motor symptoms and palliative concerns were evaluated: Sleep/Fatigue: REM sleep behavior disorder: No Restless Legs Syndrome: Leg swelling: Impaired sense of smell: Yes and reduced appetite. losing weight because he cannot drive to get fast and junk food. Cognition: Cognitive impairment: yes ST memory. gradually getting worse. MoCA Cognitive assessment: 20 (11/19/2022) Hallucinations and delusions: yes one episode of packing up CPAP in the middle of the night Apathy: Impulse control disorder: Palliative Concerns: Caregiver burden: Spiritual concerns: Advanced directives on file: Palliative services: Therapy and Exercise: Last PT Date: Last OT Date: Last ST Date: Exercises Regularly: ALLERGIES Allergen Reactions Ragweed Other: See Comments Sneezing and itching eyes Phenergan [Other] Reaction: Confusion Current Outpatient Medications Medication Sig aspirin(HALFPRIN 81 MG TAB) Take one(1) tablet daily. buPROPion XL (WELLBUTRIN XL) 300 mg 24 hr tablet Take by mouth. cholecalciferol, vitamin D3, (D3-5000 ORAL) Take by mouth. desoximetasone (TOPICORT) 0.25 % cream Apply to itching dermatitis rash spots lower legs selectively twice to three times per day until clear or much improved and then stop or taper off as able. (Patient not taking: Reported on 09/25/2022) isosorbide dinitrate (ISORDIL) 30 mg tablet Take 30 mg by mouth twice daily. metformin hcl(GLUCOPHAGE 500 MG TAB) Take one(1) tablet twice daily. PLAVIX 75 MG TAB Take one(1) tablet daily. pravastatin (PRAVACHOL) 80 mg tablet Take 80 mg by mouth once daily. tamsulosin (FLOMAX) 0.4 mg Take 0.4 mg by mouth. No current facility-administered medications for this visit. Objective Vital Signs: BP 116/59 (BP Site: Left Arm, BP Position: Sitting, BP Cuff Size: Large Adult) Pulse (!) 56 Ht 170.2 cm (5' 7 ) Wt 85.4 kg (188 lb 3.2 oz) SpO2 95% BMI 29.48 kg/m? Orthostatic Vitals: None for this encounter Weight: 85.4 kg (188 lb 3.2 oz) Height: 170.2 cm (5' 7 ) No LMP for male patient. Body mass index is 29.48 kg/m?. General Physical Examination: General: Awake, alert, interactive, no acute distress, good nutritional status, normal development, well-kept General Neurological Examination: Neurological Exam Mental Status Awake and alert. Language is fluent with no aphasia. Movement Disorders Scales Performed: MDS-UPDRS Motor subscale condition of exam Medication Off/On/Naiive Drug Naiive Time of UPDRS Time of Last Medication Last Medication Taken DBS Right DBS Left MDS-UPDRS Motor subscale scores Speech 0-Normal. No speech problems. Facial Expression 0-Normal. Normal facial expression. Rigidity Neck 0-Normal. No rigidity. Rigidity Right Upper Extremity 0-Normal. No rigidity. (paratonia) Rigidity Left Upper Extremity 0-Normal. No rigidity. (paratonia) Rigidity Right Lower Extremity 0-Normal. No rigidity. Rigidity Left Lower Extremity 0-Normal. No rigidity. Finger Taps Right 2-Mild. a) 3 to 5 interruptions during tapping, b) mild slowing, c) the amplitude decrements midway in the 10 (more content not included)... [facility] 05-29-2023 History of Present illness Narrative [facility] - FOLLOW UP EVALUATION Stacy Anderson MD [address] [place] [id number] Dear Stacy Anderson MD: I had the pleasure of seeing Mr. Ramirez for follow-up today. As you know he is a 82 year old right-handed male with a history of parkinsonism since 2019. He is seen with his and son. Subjective Previous Plan-11/19/2022 Visit: PT, exercise - Interval History: Did PT over the summer. He didn't find it particularly helpful. Sometimes does the exercises. Goes the exercise classes. Waiting for them to get hard. Wants to get better. notes he often isn't seeing things correctly. Movement Disorders Medications Schedule - as of the start of the visit: Medications Questionnaires: In addition, the following areas that may be affected by abnormal involuntary movements were evaluated: Daily activities Difficulties with eating: ok Difficulties in dressing: ok Difficulties with hygiene activities: ok Difficulties with handwriting: Difficulties with doing hobbies and other activities: water colors Difficulties turning in bed: no Difficulties getting out of bed, car or chair: sometimes car. Tremors/Gait/Balance Shaking or tremors: no Walking and balance problems: imbalance Number of falls in the Last Month: no Gait freezing: Autonomic/Pain Lightheadeness on standing: no Urinary problems: urgency and makes it most of the time Constipation problems: no Pain and other sensations: Speech/Swallowing Speech problems: Drooling: no Chewing and swallowing problems: no Sleep/Fatigue Sleep problems: no Daytime sleepiness: Fatigue: In addition, the following non-motor symptoms and palliative concerns were evaluated: Sleep/Fatigue: REM sleep behavior disorder: No Restless Legs Syndrome: Leg swelling: Impaired sense of smell: Yes and reduced appetite. losing weight because he cannot drive to get fast and junk food. Cognition: Cognitive impairment: yes ST memory. gradually getting worse. MoCA Cognitive assessment: 20 (11/19/2022) Hallucinations and delusions: yes one episode of packing up CPAP in the middle of the night Apathy: Impulse control disorder: Palliative Concerns: Caregiver burden: Spiritual concerns: Advanced directives on file: Palliative services: Therapy and Exercise: Last PT Date: Last OT Date: Last ST Date: Exercises Regularly: ALLERGIES Allergen Reactions Ragweed Other: See Comments Sneezing and itching eyes Phenergan [Other] Reaction: Confusion Current Outpatient Medications Medication Sig aspirin(HALFPRIN 81 MG TAB) Take one(1) tablet daily. buPROPion XL (WELLBUTRIN XL) 300 mg 24 hr tablet Take by mouth. cholecalciferol, vitamin D3, (D3-5000 ORAL) Take by mouth. desoximetasone (TOPICORT) 0.25 % cream Apply to itching dermatitis rash spots lower legs selectively twice to three times per day until clear or much improved and then stop or taper off as able. (Patient not taking: Reported on 09/25/2022) isosorbide dinitrate (ISORDIL) 30 mg tablet Take 30 mg by mouth twice daily. metformin hcl(GLUCOPHAGE 500 MG TAB) Take one(1) tablet twice daily. PLAVIX 75 MG TAB Take one(1) tablet daily. pravastatin (PRAVACHOL) 80 mg tablet Take 80 mg by mouth once daily. tamsulosin (FLOMAX) 0.4 mg Take 0.4 mg by mouth. No current facility-administered medications for this visit. Objective Vital Signs: BP 116/59 (BP Site: Left Arm, BP Position: Sitting, BP Cuff Size: Large Adult) Pulse (!) 56 Ht 170.2 cm (5' 7 ) Wt 85.4 kg (188 lb 3.2 oz) SpO2 95% BMI 29.48 kg/m Orthostatic Vitals: None for this encounter Weight: 85.4 kg (188 lb 3.2 oz) Height: 170.2 cm (5' 7 ) No LMP for male patient. Body mass index is 29.48 kg/m . General Physical Examination: General: Awake, alert, interactive, no acute distress, good nutritional status, normal development, well-kept General Neurological Examination: Neurological Exam Mental Status Awake and alert. Language is fluent with no aphasia. Movement Disorders Scales Performed: MDS-UPDRS Motor subscale condition of exam Medication Off/On/Naiive Drug Naiive Time of UPDRS Time of Last Medication Last Medication Taken DBS Right DBS Left MDS-UPDRS Motor subscale scores Speech 0-Normal. No speech problems. Facial Expression 0-Normal. Normal facial expression. Rigidity Neck 0-Normal. No rigidity. Rigidity Right Upper Extremity 0-Normal. No rigidity. (paratonia) Rigidity Left Upper Extremity 0-Normal. No rigidity. (paratonia) Rigidity Right Lower Extremity 0-Normal. No rigidity. Rigidity Left Lower Extremity 0-Normal. No rigidity. Finger Taps Right 2-Mild. a) 3 to 5 interruptions during tapping, b) mild slowing, c) the amplitude decrements midway in the 10-tap sequence. Finger Taps Left 1-Slight. a) the regular rhythm is broken with one or two interruptions or hesitations of the tapping movement, b) slight slowing, c) the amplitude decrements near the end of the 10 taps. Hand Movements Right 0-Normal. No problem. Hand Movements Left 0-Normal. No problem. Arm Movements Right 0-Normal. No problems. Arm Movements Left 0-Normal. No problems. Toe Taps Right 1-Slight. a) the regular rhythm is broken with one or two interruptions or hesitations of the tapping movement, b) slight slowing, c) the amplitude decrements near the end of the ten taps. Toe Taps Left 1-Slight. a) the regular rhythm is broken with one or two interruptions or hesitations of the tapping movement, b) slight slowing, c) the amplitude decrements near the end of the ten taps. Leg Agility Right 1-Slight. a) the regular rhythm is broken with one or two interruptions or hesitations of the movement, b) slight slowing, c) the amplitude decrements near the end of the task. Leg Agility Left 1-Slight. a) the regular rhythm is broken with one or two interruptions or hesitations of the movement, b) slight slowing, c) the amplitude decrements near the end of the task. Arise From Chair 1-Slight. Arising is slower than normal, or may need more than one attempt, or may need to move forward in the chair to arise. No need to use the arms of the chair. Gait 2-Mild. Independent walking but with substantial gait impairment. Gait Freezing 0-Normal. No freezing. Posture Stability 0-Normal. No problems: recovers with one or two steps. (deferred) Posture 1-Slight. Not quite erect, but posture could be normal for older person. Body Bradykinesia 1-Slight. Slight global slowness and poverty of spontaneous movements. Postural Tremor Hand Right 0-Normal. No tremor. Postural Tremor Hand Left 0-Normal. No tremor. Kinetic Tremor Right 0-Normal. No tremor. Kinetic Tremor Left 0-Normal. No tremor. Rest Tremor Amplitude Right Upper Extremity 0-Normal. No tremor. Rest Tremor Amplitude Left Upper Extremity 0-Normal. No tremor. Rest Tremor Amplitude Right Lower Extremity 0-Normal. No tremor. Rest Tremor Amplitude Left Lower Extremity 0-Normal. No tremor. Rest Tremor Amplitude Lip/Jaw 0-Normal. No tremor. Rest Tremor Constancy 0-Normal. No tremor. MDS-UPDRS Motor subscale totals Left Total 3 Right Total 4 Midline Total 5 Tremor Total / 10 0 PIGD Total / 3 2 Overall Total 12 % Change Compared to Last Filed Total Assessment and Plan: Assessment Mr. Ramirez is a right-handed 82 year old year old male with gait instability since around 2019. Progression has been at least somewhat step-chacon. Also with cognitive impairment and occasional hallucinations. Family has noted visuospatial deficits. Seen by Dr. Garcia in [facility] for [facility] changes on his August 2022 MRI that are not felt to be inflammatory. On my review, ventricles are not large enough to consider NPH. 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 Sinemet can be helpful in DLB patients when potentially levodopa-responsive symptoms are present, consider for the future depending on course. The following are the current problems noted and addressed during this visit: Vascular parkinsonism (hcc) (primary encounter diagnosis) Mild cognitive impairment Plan 05/29/2023 Visit: [facility] - Continue exercise - Updated Movement Disorders Medication Schedule: Medications Level of service : 81591 ( 30-39 min). Time spent 31 min on the day of service, which included preparing to see the patient, [id number] patient care, completing clinical documentation, performing a medically appropriate examination, and counseling and educating the patient/family/caregiver. Thank you for allowing me to be part of the clinical care of this patient! I look forward to continued participation in the patient s care with you. Please do not hesitate to call with any questions. Sincerely, Sharita Mtz MD documented in this encounter [facility] 05-29-2023 Miscellaneous Notes Checked jeffrey and tsering patient not present at time of visit documented in this encounter [facility] 03-19-2023 Miscellaneous Notes Orders signed and faxed back on 01/24/23 and confirmation received Received Reevaluation/medicare recertification PT from [facility] Placed on Dr. Smith veloz for review and signature documented in this encounter [facility] 01-29-2023 Miscellaneous Notes Faxed back and confirmation received . Sent to scanning Received PT initial evaluation from [facility] Placed on Dr. Smith veloz for review and signature documented in this encounter [facility] 11-19-2022 Note HNO ID: [id number] Author: Sharita Mtz MD Service: ? Author Type: Physician Type: Progress Notes Filed: 11/20/2022 7:44 AM Note Text: [facility] - NEW PATIENT EVALUATION Referring Provider: Todd Garcia [address] [facility] [id number] Dear Todd Garcia: Thank you for referring Mr. Ramirez to our clinic today. 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 He is seen with his amd son. Subjective HISTORY OF PRESENT ILLNESS: Initial HPI Fell walking slight grade and fell. This was November 2019. Was walking downhill, got going too fast, pitched forward. This was the first hint something was going on. Seemed to come on quickly. About 2 years ago went with family to [place] and he did well. Wouldn't attempt that trip now. Progression seemed fast but lately has leveled off. Getting lost in town for 4-5 years. Short-term memory is off, knowing the date, planning is impaired. Cooking didn't groover and turner because he missed a step. Stopped driving. Had some accidents. Depth perception is off. Attention wanders. Sitting down has one cheek on the arm of the chair. Occasional visual hallucinations. Had vivid dream that led him to pack up his CPAP. Sometimes shouts words. Rare hallucinations. Was not taking medications consistently so managing now. Neck pain with certain positions. Stooped posture. Some bladder trouble that seemed to come on suddenly, 6 months. Urgency. On Flomax. Better when he takes it more consistently. Takes Tums for belching, not new. Did PT at [facility] and goes to the exercise class. Started out doing the PT for strength. Not great about doing the exercises on his own. Last PT was awhile ago. No tremors. Speech is good but a little softer. Movement Disorders Medications Schedule - as of the start of the visit: Medications Questionnaires In addition, the following areas that may be affected by abnormal involuntary movements were evaluated: Daily activities Difficulties with eating: ok Difficulties in dressing: can do it. tends to wear the same clothes. Difficulties with hygiene activities: Doesn't want to shower or brush his teeth. Went a month without a shower. Difficulties with handwriting: doesn't write much, never did before. signature more difficult at the end compared to beginning Difficulties with doing hobbies and other activities: Difficulties turning in bed: limited by neck tightness Difficulties getting out of bed, car or chair: hard to stand up Tremors/Gait/Balance Shaking or tremors: no Walking and balance problems: yes Number of falls in the Last Month: falls every few months Gait freezing: no Autonomic/Pain Lightheadeness on standing: no Urinary problems: yes Constipation problems: yes Pain and other sensations: Speech/Swallowing Speech problems: no Drooling: no Chewing and swallowing problems: eats fast. swallows ok Sleep/Fatigue Sleep problems: no. uses CPAP Daytime sleepiness: Fatigue: In addition, the following non-motor symptoms and palliative concerns were evaluated: Sleep/Fatigue: REM sleep behavior disorder: Yes Restless Legs Syndrome: Leg swelling: Impaired sense of smell: Yes and reduced appetite. losing weight because he cannot drive to get fast and junk food. Cognition: Cognitive impairment: yes MoCA Cognitive assessment: 20 (11/19/2022) Hallucinations and delusions: yes rare Apathy: Impulse control disorder: Palliative Concerns: Caregiver burden: Spiritual concerns: Advanced directives on file: Palliative services: Therapy and Exercise: Last PT Date: Last OT Date: Last ST Date: Exercises Regularly: ALLERGIES Allergen Reactions Ragweed Other: See Comments Sneezing and itching eyes Phenergan [Other] Reaction: Confusion Current Outpatient Medications Medication Sig buPROPion XL (WELLBUTRIN XL) 300 mg 24 hr tablet Take by mouth. tamsulosin (FLOMAX) 0.4 mg Take 0.4 mg by mouth. isosorbide dinitrate (ISORDIL) 30 mg tablet Take 30 mg by mouth twice daily. cholecalciferol, vitamin D3, (D3-5000 ORAL) Take by mouth. pravastatin (PRAVACHOL) 80 mg tablet Take 80 mg by mouth once daily. aspirin(HALFPRIN 81 MG TAB) Take one(1) tablet daily. metformin hcl(GLUCOPHAGE 500 MG TAB) Take one(1) tablet twice daily. PLAVIX 75 MG TAB Take one(1) tablet daily. desoximetasone (TOPICORT) 0.25 % cream Apply to itching dermatitis rash spots lower legs selectively twice to three times per day until clear or much improved and then stop or taper off as able. (Patient not taking: No sig reported) [] Lopressor 25 mg Oral 1.0 tablet Oral bid No current facility-administered medications for this visit. 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 [facility] 11-19-2022 History of Present illness Narrative [facility] - NEW PATIENT EVALUATION Referring Provider: Todd Garcia [id number] [facility] [id number] Dear Todd Garcia: Thank you for referring Mr. Ramirez to our clinic today. 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 He is seen with his amd son. Subjective HISTORY OF PRESENT ILLNESS: Initial HPI Fell walking slight grade and fell. This was November 2019. Was walking downhill, got going too fast, pitched forward. This was the first hint something was going on. Seemed to come on quickly. About 2 years ago went with family to [place] and he did well. Wouldn't attempt that trip now. Progression seemed fast but lately has leveled off. Getting lost in town for 4-5 years. Short-term memory is off, knowing the date, planning is impaired. Cooking didn't groover and turner because he missed a step. Stopped driving. Had some accidents. Depth perception is off. Attention wanders. Sitting down has one cheek on the arm of the chair. Occasional visual hallucinations. Had vivid dream that led him to pack up his CPAP. Sometimes shouts words. Rare hallucinations. Was not taking medications consistently so managing now. Neck pain with certain positions. Stooped posture. Some bladder trouble that seemed to come on suddenly, 6 months. Urgency. On Flomax. Better when he takes it more consistently. Takes Tums for belching, not new. [facility] PT [facility] and goes to the exercise class. Started out doing the PT for strength. Not great about doing the exercises on his own. Last PT was awhile ago. No tremors. Speech is good but a little softer. Movement Disorders Medications Schedule - as of the start of the visit: Medications Questionnaires In addition, the following areas that may be affected by abnormal involuntary movements were evaluated: Daily activities Difficulties with eating: ok Difficulties in dressing: can do it. tends to wear the same clothes. Difficulties with hygiene activities: Doesn't want to shower or brush his teeth. Went a month without a shower. Difficulties with handwriting: doesn't write much, never did before. signature more difficult at the end compared to beginning Difficulties with doing hobbies and other activities: Difficulties turning in bed: limited by neck tightness Difficulties getting out of bed, car or chair: hard to stand up Tremors/Gait/Balance Shaking or tremors: no Walking and balance problems: yes Number of falls in the Last Month: falls every few months Gait freezing: no Autonomic/Pain Lightheadeness on standing: no Urinary problems: yes Constipation problems: yes Pain and other sensations: Speech/Swallowing Speech problems: no Drooling: no Chewing and swallowing problems: eats fast. swallows ok Sleep/Fatigue Sleep problems: no. uses CPAP Daytime sleepiness: Fatigue: In addition, the following non-motor symptoms and palliative concerns were evaluated: Sleep/Fatigue: REM sleep behavior disorder: Yes Restless Legs Syndrome: Leg swelling: Impaired sense of smell: Yes and reduced appetite. losing weight because he cannot drive to get fast and junk food. Cognition: Cognitive impairment: yes MoCA Cognitive assessment: 20 (11/19/2022) Hallucinations and delusions: yes rare Apathy: Impulse control disorder: Palliative Concerns: Caregiver burden: Spiritual concerns: Advanced directives on file: Palliative services: Therapy and Exercise: Last PT Date: Last OT Date: Last ST Date: Exercises Regularly: ALLERGIES Allergen Reactions Ragweed Other: See Comments Sneezing and itching eyes Phenergan [Other] Reaction: Confusion Current Outpatient Medications Medication Sig buPROPion XL (WELLBUTRIN XL) 300 mg 24 hr tablet Take by mouth. tamsulosin (FLOMAX) 0.4 mg Take 0.4 mg by mouth. isosorbide dinitrate (ISORDIL) 30 mg tablet Take 30 mg by mouth twice daily. cholecalciferol, vitamin D3, (D3-5000 ORAL) Take by mouth. pravastatin (PRAVACHOL) 80 mg tablet Take 80 mg by mouth once daily. aspirin(HALFPRIN 81 MG TAB) Take one(1) tablet daily. metformin hcl(GLUCOPHAGE 500 MG TAB) Take one(1) tablet twice daily. PLAVIX 75 MG TAB Take one(1) tablet daily. desoximetasone (TOPICORT) 0.25 % cream Apply to itching dermatitis rash spots lower legs selectively twice to three times per day until clear or much improved and then stop or taper off as able. (Patient not taking: No sig reported) [] Lopressor 25 mg Oral 1.0 tablet Oral bid No current facility-administered medications for this visit. 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 has a past surgical history that includes past surgical history of; past surgical history of; colonoscopy flx dx w/collj spec when pfrmd (10/24/2009); colonoscopy flx dx w/collj spec when pfrmd; and heart surgery hx. Social History Tobacco Use Smoking status: Former Types: Cigarettes Quit date: 09/05/1978 Years since quittin.2 Substance Use Topics Alcohol use: Yes Comment: occasionally wine Family History: family history includes Cancer in his father; Coronary Artery Disease in his father; pulmonary embolism in his mother. Objective Vital Signs: BP (!) 108/48 (BP Site: Left Arm, BP Position: Sitting, BP Cuff Size: Regular Adult) Pulse 62 SpO2 94% Orthostatic Vitals: None for this encounter No LMP for male patient. There is no height or weight on file to calculate BMI. General Physical Examination: General: Awake, alert, interactive, no acute distress, good nutritional status, normal development, well-kept General Neurological Examination: Neurological Exam Mental Status Awake and alert. Language is fluent with no aphasia. Cranial Nerves CN III, IV, : Extraocular movements intact bilaterally. CN V: Facial sensation is normal. CN VII: Full and symmetric facial movement. CN VIII: Right: Hearing is normal. Left: Hearing is decreased. CN XI: Shoulder shrug strength is normal. CN XII: Tongue midline without atrophy or fasciculations. Motor Strength is 5/5 throughout all four extremities. Movement Disorders Scales Performed: Jarvis Cognitive Assessment (MoCA) Visuospatial/Executive 3 Naming 3 Attention 4 Language 1 Abstraction 2 Delayed Memory 0 Orientation 6 Education < or equal to 12 years (1 is true, 0 is false) 1 MoCA Total Score 20 MDS-UPDRS Motor subscale condition of exam Medication Off/On/Naiive Drug Naiive Time of UPDRS Time of Last Medication Last Medication Taken DBS Right DBS Left MDS-UPDRS Motor subscale scores Speech 0-Normal. No speech problems. Facial Expression 0-Normal. Normal facial expression. Rigidity Neck 0-Normal. No rigidity. Rigidity Right Upper Extremity 1-Slight. Rigidity only detected with activation maneuver. Rigidity Left Upper Extremity 1-Slight. Rigidity only detected with activation maneuver. Rigidity Right Lower Extremity 0-Normal. No rigidity. Rigidity Left Lower Extremity 0-Normal. No rigidity. Finger Taps Right 1-Slight. a) the regular rhythm is broken with one or two interruptions or hesitations of the tapping movement, b) slight slowing, c) the amplitude decrements near the end of the 10 taps. Finger Taps Left 2-Mild. a) 3 to 5 interruptions during tapping, b) mild slowing, c) the amplitude decrements midway in the 10-tap sequence. Hand Movements Right 0-Normal. No problem. Hand Movements Left 0-Normal. No problem. Arm Movements Right 0-Normal. No problems. Arm Movements Left 0-Normal. No problems. Toe Taps Right 0-Normal. No problem. Toe Taps Left 0-Normal. No problem. Leg Agility Right 0-Normal. No problems. Leg Agility Left 0-Normal. No problems. Arise From Chair 1-Slight. Arising is slower than normal, or may need more than one attempt, or may need to move forward in the chair to arise. No need to use the arms of the chair. Gait 2-Mild. Independent walking but with substantial gait impairment. Gait Freezing 0-Normal. No freezing. Posture Stability 0-Normal. No problems: recovers with one or two steps. (deferred) Posture 1-Slight. Not quite erect, but posture could be normal for older person. Body Bradykinesia 1-Slight. Slight global slowness and poverty of spontaneous movements. Postural Tremor Hand Right 0-Normal. No tremor. Postural Tremor Hand Left 0-Normal. No tremor. Kinetic Tremor Right 0-Normal. No tremor. Kinetic Tremor Left 0-Normal. No tremor. Rest Tremor Amplitude Right Upper Extremity 0-Normal. No tremor. Rest Tremor Amplitude Left Upper Extremity 0-Normal. No tremor. Rest Tremor Amplitude Right Lower Extremity 0-Normal. No tremor. Rest Tremor Amplitude Right Lower Extremity 0-Normal. No tremor. Rest Tremor Amplitude Lip/Jaw 0-Normal. No tremor. Rest Tremor Constancy 0-Normal. No tremor. MDS-UPDRS Motor subscale totals Left Total 3 Right Total 2 Midline Total 5 Tremor Total / 10 0 PIGD Total / 3 2 Overall Total 10 % Change Compared to Last Filed Total Assessment and Plan: Assessment Mr. Ramirez is a right-handed 82 year old year old male with gait instability since around 2019. Progression has been at least somewhat step-chacon. Also with cognitive impairment and occasional hallucinations. Family has noted visuospatial deficits. Seen by Dr. Garcia in [facility] for WM changes on his August 2022 MRI that are not felt to be inflammatory. On my review, ventricles are not large enough to consider NPH. 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 Sinemet can be helpful in DLB patients when potentially levodopa-responsive symptoms are present, consider for the future depending on course. For now will work on gait. Return to PT and continue with Parkinson's exercise classes to maintain benefit. Agree he should not be driving. Consider Ex[employer]. The following are the current problems noted and addressed during this visit: Ataxia Vascular parkinsonism (hcc) Gait instability (primary encounter diagnosis) Parkinsonism, unspecified parkinsonism type (hcc) Lewy body dementia without behavioral disturbance, psychotic disturbance, mood disturbance, or anxiety, unspecified dementia severity (hcc) Plan 11/19/2022 Visit: PT, exercise - Updated Movement Disorders Medication Schedule: Medications Return at or around: 05/21/23 Level of service: Est level 5 + 1 units 68300 (>55 min, [id number] for each 15 min > 40). Time spent 68 min on the day of service, which included preparing to see the patient, [id number] patient care, completing clinical documentation, obtaining and/or reviewing separately obtained history, performing a medically appropriate examination, and counseling and educating the patient/family/caregiver. Thank you for allowing me to be part of the clinical care of this patient! I look forward to continued participation in the patient s care with you. Please do not hesitate to call with any questions. Sincerely, Sharita Mtz MD documented in this encounter [facility] 09-25-2022 Note HNO ID: [id number] Author: Todd Garcia MD Service: ? Author Type: Physician Type: Progress Notes Filed: 09/29/2022 7:53 PM Note Text: [facility] NEW PATIENT EVALUATION/CONSULTATION Referral source: SELF Also followed by: No care coding team lead to display PRINCIPAL NEUROLOGIC DIAGNOSIS: Parkinsonism, possibly vascular in etiology HISTORY OF ILLNESS: An opinion on this 82 year old right handed male was requested by the patient for a second opinion on neurological symptoms. The patient was accompanied by his and son. Previous records (physician notes, laboratory reports, and radiology reports) and imaging studies were reviewed and summarized. My recommendations will be communicated back to the patient's physician(s) via electronic medical record. Follow-up is expected to be with movement disorders neurology. He underwent brain scan in Aug 2022, done for weakness, which identified white matter disease, and they are here to evaulate the conseqiences of that vis a vi his walking difficulties. Weakness and balance changed, and he is shuffling his feet. Small grades can be troublesome. Mi at age 50, with stents and s/p CABG approx 10 years ago Father had an IL age 49, then at age 50 of Hodgkin's One episode of strnge behavior at night, he had a nancy he needed to go somewhere, and packed up his CPAP machine in his sleep. Also a few episodes of hallucinations. Despite detailed questioning, she denies any prior episode that would be typical of optic neuritis, brainstem demyelination, or myelitis in her past. 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 has a past surgical history that includes past surgical history of; past surgical history of; colonoscopy flx dx w/collj spec when pfrmd (10/24/09); and colonoscopy flx dx w/collj spec when pfrmd. has a current medication list which includes the following prescription(s): bupropion xl, tamsulosin, isosorbide dinitrate, cholecalciferol (vitamin d3), pravastatin, halfprin, glucophage, plavix, cyanocobalamin (vitamin b-12), ammonium lactate, desoximetasone, sulfamethoxazole-trimethoprim, amaryl, zoloft, pravachol, and [] Lopressor 25 mg Oral. Social History Tobacco Use Smoking status: Former Types: Cigarettes Quit date: 09/05/1978 Years since quittin.0 Smokeless tobacco: Not on file family history includes Cancer in his father; Cerebral Embolism in his mother; Coronary Artery Disease in his father. PHYSICAL EXAM: BP 129/68 Pulse 69 Wt 81.2 kg (179 lb) Hair, skin, nails, and joints were normal. Neck was supple without Lhermitte's phenomenon. There was no peripheral edema. Somewhat reduced facial expression. The patient was alert and oriented to person, place, and time but seemed mildly confused at times throughout the encounter. Affect was normal. The patient did not appear depressed. Ocular ductions were full without nystagmus or ataxia. Facial sensation was normal. Muscles of mastication and facial expression moved normally. Hearing was intact to finger rub bilaterally. Palatal movements were normal. Sternocleidomastoid and trapezius power were normal. Tongue movements were normal. There was no dysarthria. Motor Examination: There was no pronator drift. Some rigidity present both arms, worse with contralateral motor activity. No tremor at rest or posture. Right Upper Extremity: Left Upper Extremity: Deltoid 5/5 Deltoid 5/5 Biceps 5/5 Biceps 5/5 Triceps 5/5 Triceps 5/5 Wrist extensors 5/5 Wrist extensors 5/5 Wrist flexors 5/5 Wrist flexors 5/5 Dorsal interossei 5/5 Dorsal interossei 5/5 Abductor pollicis 5/5 Abductor pollicis 5/5 Tone (Kala scale) 0 Tone (Kala scale) 0 Right Lower Extremity: Left Lower Extremity: Hip flexors 5/5 Hip flexors 5/5 Hip extensors 5/5 Hip extensors 5/5 Knee flexors 5/5 Knee flexors 5/5 Knee extensors 5/5 Knee extensors 5/5 Dorsiflexors 5/5 Dorsiflexors 5/5 Plantarflexors 5/5 Plantarflexors 5/5 Toe extensors 5/5 Toe extensors 5/5 Toe flexors 5/5 Toe flexors 5/5 Tone (Kala scale) 0 Tone (Kala scale) 0 Reflexes: brachioradialis + brachioradialis + biceps + biceps + triceps + triceps + patellar + patellar + Achilles 0 Achilles 0 Fowler's sign absent Fowler's sign absent clonus absent clonus absent plantar response down plantar response down Coordination testing in the arms and legs was performed including [id number], rapid-alternating, and fine movements. Rapid movements were smooth with good abhay and there was no dysmetria or ataxia. No signs of cerebellar dysfunction. Sensory examination: Light touch: Normal all four extremities. Vibration: Moderately diminished bilateral lower extremities. Gait (more content not included)... [facility] documented as of this encounter (statuses as of 11/20/2022) [facility] History of Past illness Narrative* Problem Noted Date Resolved Date Other seborrheic keratosis 10/11/200804/19 Contact dermatitis and other eczema, due to unspecified cause 03/31/2008 04/19/2013 XEROSIS///SEBACEOUS GLAND DIS NEC 03/31/2008 04/19/2013 Unspecified pruritic disorder 03/31/2008 ACTINIC DAMAGE//CHR SOLAR SKIN DAMAGE NOS 200704/19/2013 NEVUS BACK////BENIGN LAWSON SKIN TRUNK 01/29/2008 04/19/2013 SOLAR LENTIGINES///DYSCHROMIA OTHER 01/29/2008 03/31/2012 documented as of this encounter (statuses as of 01/30/2023) [address]-2009 History of Past illness Narrative* Problem Noted Date Diagnosed Date Resolved Date Other seborrheic keratosis 10/11/2008 0 04/19/2013 Contact dermatitis and other eczema, due to unspecified cause 03/31/2008 04/19/2013 XEROSIS///SEBACEOUS GLAND DIS NEC 03/31/2008 04/19/2013 Unspecified pruritic disorder 03/31/2008 04/19/2013 ACTINIC DAMAGE//CHR SOLAR SKIN DAMAGE NOS 01/29/2008 04/19/2013 NEVUS BACK////BENIGN LAWSON SKIN TRUNK 01/29/2008 04/19/2013 SOLAR LENTIGINES///DYSCHROMIA OTHER 01/29/2008 03/31/2012 documented as of this encounter (statuses as of 03/19/2023) [address]2009 History of Past illness Narrative* Problem Noted Date Diagnosed Date Resolved Date Other seborrheic keratosis 10/11/2008 0 04/19/2013 Contact dermatitis and other eczema, due to unspecified cause 03/31/2008 04/19/2013 XEROSIS///SEBACEOUS GLAND DIS NEC 03/31/2008 04/19/2013 Unspecified pruritic disorder 03/31/2008 04/19/2013 ACTINIC DAMAGE//CHR SOLAR SKIN DAMAGE NOS 01/29/2008 04/19/2013 NEVUS BACK////BENIGN LAWSON SKIN TRUNK 01/29/2008 04/19/2013 SOLAR LENTIGINES///DYSCHROMIA OTHER 01/29/2008 03/31/2012 documented as of this encounter (statuses as of 05/29/2023) [facility] History of Past illness Narrative* Problem Noted Date Diagnosed Date Resolved Date Other seborrheic keratosis 10/11/2008 0 04/19/2013 Contact dermatitis and other eczema, due to unspecified cause 03/31/2008 04/19/2013 XEROSIS///SEBACEOUS GLAND DIS NEC 03/31/2008 04/19/2013 Unspecified pruritic disorder 03/31/2008 04/19/2013 ACTINIC DAMAGE//CHR SOLAR SKIN DAMAGE NOS 01/29/2008 04/19/2013 NEVUS BACK////BENIGN LAWSON SKIN TRUNK 01/29/2008 04/19/2013 SOLAR LENTIGINES///DYSCHROMIA OTHER 01/29/2008 03/31/2012 documented as of this encounter (statuses as of 05/29/2023) [address] History of Past illness Narrative* Problem Noted Date Diagnosed Date Resolved Date Other seborrheic keratosis 10/11/2008 0 04/19/2013 Contact dermatitis and other eczema, due to unspecified cause 03/31/2008 04/19/2013 XEROSIS///SEBACEOUS GLAND DIS NEC 03/31/2008 04/19/2013 Unspecified pruritic disorder 03/31/2008 04/19/2013 ACTINIC DAMAGE//CHR SOLAR SKIN DAMAGE NOS 01/29/2008 04/19/2013 NEVUS BACK////BENIGN LAWSON SKIN TRUNK 01/29/2008 04/19/2013 SOLAR LENTIGINES///DYSCHROMIA OTHER 01/29/2008 03/31/2012 documented as of this encounter (statuses as of 09/18/2023) [facility] Diagnosis Gait instability- Primary Abnormality of gait Ataxia Lack of coordination Vascular parkinsonism (HCC) Paralysis agitans Parkinsonism, unspecified Parkinsonism type (HCC) Lewy body dementia without behavioral disturbance, psychotic disturbance, mood disturbance, or anxiety, unspecified dementia severity (HCC) [facility] Diagnosis Vascular parkinsonism (HCC)- Primary Paralysis agitans Mild cognitive impairment Mild cognitive impairment, so stated [facility] Cognitive impairment, mild, so stated- Primary Mild cognitive impairment, so stated Vascular parkinsonism (HCC) Paralysis agitans Mild cognitive impairment Mild cognitive impairment, so stated documented in this encounter [facility] Reason for Referral Specialty Diagnoses / Procedures Referred By Hope t Referred To Contact Diagnoses Gait instability Parkinsonism, unspecified Parkinsonism type (HCC) Procedures PROVIDER ORDERED FOLLOW UP OFFICE/OUTPATIENT NEW HIGH MDM 60-74 MINUTES Sharita Mtz MD [address] [address] Referral ID Status Reason Start Date Expiration Date Visits Requested Visits Authorized [id number] Authorized PCP Requested Referral 11/19/2022 02/17/2023 1 1 Specialty Diagnoses / Procedures Referred By Abrahamac t Referred To Contact [facility] Diagnoses Vascular parkinsonism (HCC) Gait instability Procedures CONSULT TO PHYSICAL THERAPY PHYSICAL THERAPY EVALUATION HIGH COMPLEX 45 MINS Sharita Mtz MD [address] [id number] [facility] [address] [place], [place] [id number] Referral ID Status Reason Start Date Expiration Date Visits Requested Visits Authorized [id number] Authorized PCP Requested Referral Auto-Generate d Referral 11/19/2022 11/19/2023 99 99 Specialty Diagnoses / Procedures Referred By Hope t Referred To Contact Neurology Diagnoses Vascular parkinsonism (HCC) Mild cognitive impairment Procedures CONSULT TO NEUROLOGY OFFICE/OUTPATIENT [facility] MDM 60-74 MINUTES Sharita Mtz MD [address] [place] [address] Referral ID Status Reason Start Date Expiration Date Visits Requested Visits Authorized [id number] Authorized PCP Requested Referral 05/28/2024 1 1 Specialty Diagnoses / Procedures Referred By Hope t Referred To Contact MR IMAGING Diagnoses Cognitive impairment, mild, so stated Procedures MRI 3D POST PROCESSING 3D RENDERING W/INTERP&POSTPROC DIFF WORK STATION Neur [facility] [address] [facility] Referral ID Status Reason Start Date Expiration Date Visits Requested Visits Authorized [id number] Authorized Auto-Generat ed Referral 09/16/2023 10/15/2024 1 1 Specialty Diagnoses / Procedures Referred By Hope t Referred To Contact MR IMAGING Diagnoses Cognitive impairment, mild, so stated Procedures MRI BRAIN W QUANT WO IVCON MRI BRAIN BRAIN STEM W/O CONTRAST MATERIAL [facility] [address] [place] [id number] [place] [id number] Referral ID Status Reason Start Date Expiration Date Visits Requested Visits Authorized [id number] Authorized Auto-Generat ed Referral 09/16/2023 10/15/2024 1 1 Summary Purpose Family History No Family History Records Found Advance Directives No Advanced Directives Records Found Additional Source Comments Source Comments (unrecognize d section and content) In the event this informatio n is protected by the Federal Confidentiality of Alcohol and Drug Abuse Patient Records regulations: The Federal rules restrict any use of the information to criminally investigate or prosecute any alcohol or drug abuse patient.[facility] event this information is protected by the Federal Confidentiality of Alcohol and Drug Abuse Patient Records regulations: The Federal rules restrict any use of the information to criminally investigate or prosecute any alcohol or drug abuse patient.[facility] the event this information is protected by the Federal Confidentiality of Alcohol and Drug Abuse Patient Records regulations: The Federal rules restrict any use of the information to criminally investigate or prosecute any alcohol or drug abuse patient.[facility] the event this information is protected by the Federal Confidentiality of Alcohol and Drug Abuse Patient Records regulations: The Federal rules restrict any use of the information to criminally investigate or prosecute any alcohol or drug abuse patient.[facility] the event this information is protected by the Federal Confidentiality of Alcohol and Drug Abuse Patient Records regulations: The Federal rules restrict any use of the information to criminally investigate or prosecute any alcohol or drug abuse patient.[facility] HospitalIn the event this information is protected by the Federal Confidentiality of Alcohol and Drug Abuse Patient Records regulations: The Federal rules restrict any use of the information to criminally investigate or prosecute any alcohol or drug abuse patient.[facility] Reason for Visit (unrecogniz ed section and content) Specialty Diagnoses / Procedures Referred By Hope t Referred To Contact Neurology Diagnoses Ataxia Vascular parkinsonism (HCC) Procedures CONSULT TO NEUROLOGY OFFICE/OUTPATIENT [facility] 60-74 MINUTES Todd Garcia MD [address] [place] [address] Referral ID Status Reason Start Date Expiration Date V isits Requested Visits Authorized [id number] Closed PCP Requested Referral 09/25/2022 09/25/2023 1 1 Reason Comments Orders Reason Comments Follow Up Specialty Diagnoses / Procedures Referred By Contac t Referred To Contact Diagnoses Gait instability Parkinsonism, unspecified Parkinsonism type Procedures PROVIDER ORDERED FOLLOW UP OFFICE/OUTPATIENT [facility] 60-74 MINUTES Sharita Mtz MD [address] [address] Referral ID Status Reason Start Date Expiration Date V isits Requested Visits Authorized [id number] Closed PCP Requested Referral 11/19/2022 02/17/2023 1 1 Reason Comments Appointment Reason Comments Consult Specialty Diagnoses / Procedures Referred By Contac t Referred To Contact Neurology Diagnoses Vascular parkinsonism (HCC) Mild cognitive impairment Procedures CONSULT TO NEUROLOGY OFFICE/OUTPATIENT [facility] 60-74 MINUTES Sharita Mtz MD [address] [address] Referral ID Status Reason Start Date Expiration Date V isits Requested Visits Authorized [id number] Closed PCP Requested Referral 05/29/2023 05/28/2024 1 1 Care Teams (unrecognized sec tion and content) Cloth Coverer Relationship Specialty Start Date End Date Stacy Anderson MD [address] [facility] [place] [address] PCP - General Family Medicine 01/14/23 Cloth Coverer Relationship Specialty Start Date End Date Stacy Anderson MD [address] [facility] [place], [place] [id number] PCP - General Family Medicine 01/14/23 Cloth Coverer Relationship Specialty Start Date End Date Stacy Anderson MD [address] [facility] [place] [address] PCP - General Family Medicine 01/14/23 Cloth Coverer Relationship Specialty Start Date End Date Stacy Anderson MD [address] [place] [address] PCP - General Family Medicine 01/14/23 (unrecognized sect ion and content) No Status Records Found INFORMATION SOURCE (unrecogn ized section and content) FOR RECORDS PERTAINING TO PATIENTS WHO ARE OR HAVE BEEN ENROLLED IN A CHEMICAL DEPENDENCY/SUBSTANCEABUSE PROGRAM, SOME INFORMATION MAY BE OMITTED. This clinical summary was aggregated from multiple sources. Caution should be exercised in using it in the provision of clinical care. This summary normalizes information from multiple sources, and as a consequence, information in this document may materially change the coding, format and clinical context of patient data. In addition, data may be omitted in some cases. CLINICAL DECISIONS SHOULD BE BASED ON THE PRIMARY CLINICAL RECORDS. [facility]. provides no warranty or guarantee of the accuracy or completeness of information in this document.
[2023-09-29 16:05] LABS: PSA,Total - Annual Screen 5.87 ng/mL (0.00-4.00)
== END | disposition home or self-care (01) ==
LOC: MTLAB 11:40
PROVIDERS: PCP Family Medicine; Referring Provider Nurse Practitioner; Visit Provider Nurse Practitioner
DX: Z12.5 Encounter for screening for malignant neoplasm of prostate (principal)
CPT/HCPCS: 36415; 84153; G0103

== ENCOUNTER 2024-01-30 08:00 | Outpatient (RCR) | payer MEDICARE, OTHER, SELFPAY ==
[2022-06-07 10:13] VITALS: BMI 29.0
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
== END 2024-01-30 19:00 | disposition home or self-care (01) ==
LOC: SP 08:00
PROVIDERS: PCP Family Medicine
DX: F01.50 Vascular dementia, unspecified severity, without behavioral disturbance, psychotic disturbance, mood disturbance, and anxiety (principal); R47.02 Dysphasia
CPT/HCPCS: 92507; 92523; 97129; 97130

== ENCOUNTER → 2024-09-14 | Outpatient (CLI) | payer MEDICARE, OTHER, SELFPAY ==
[2024-06-13 11:12] VITALS: BMI 29.0
[2024-09-14 13:06] LABS: Hematocrit 38.7 % (40-54); Hemoglobin 12.6 g/dL (13.0-16.5); Mean Corp Hgb Conc 32.6 g/dL (32-36); Mean Corpuscular Hgb 31.5 pg (27.0-32.0); Mean Corpuscular Volume 96.8 fL (80-94); Mean Platelet Vol. 9.7 fl (6.2-12.0); Platelet Count 226 K/mm3 (150-450); RBC Distribution Width CV 13.4 % (11.6-14.6); White Blood Count 6.4 K/mm3 (4.4-11.0)
[2024-09-14 13:30] LABS: ALB/GLOB Ratio 1.2 RATIO (0.9-2.4); AST(SGOT) 8 U/L (15-37); Alanine Aminotransfer ALT/SGPT 17 U/L (16-61); Albumin, Serum 3.8 g/dL (3.2-5.0); Alkaline Phosphatase 63 U/L (45-117); Anion Gap 8 (5-15); BUN 23 mg/dL (7-18); BUN/Creat Ratio 17.7 RATIO (10-20); Calcium,Total 9.5 mg/dL (8.5-10.1); Chloride 101 mmol/L (98-107); Cholesterol 172 mg/dL (200); EST Glomerular Filtration Rate 56 mL/min (>60); Est Glom Filt Rate - Afr Amer 68 mL/min (>60); Globulin 3.2 g/dL (2.2-4.2); Glucose 128 mg/dL (74-106); High Density Lipoprotein 65 mg/dL; Iron 67 ug/dL (65-175); Potassium 4.9 mmol/L (3.5-5.1); Sodium Level 139 mmol/L (136-145); Triglycerides 192 mg/dL; Very Low Density Lipoprotein 38 mg/dL (5-40)
[2024-09-14 13:31] LABS: PSA,Total- Diagnostic 7.61 ng/mL (0.0-4.0)
[2024-09-14 13:31] LABS: Vitamin B12 854 pg/mL (211-911)
[2024-09-14 18:24] LABS: Hemoglobin A1c 6.8 % (3.8-5.6)
== END | disposition home or self-care (01) ==
PROVIDERS: PCP Family Medicine; Referring Provider Urology; Visit Provider Urology
DX: Z00.00 Encounter for general adult medical examination without abnormal findings (principal); E13.22 Other specified diabetes mellitus with diabetic chronic kidney disease; E13.44 Other specified diabetes mellitus with diabetic amyotrophy; N18.9 Chronic kidney disease, unspecified; E53.8 Deficiency of other specified B group vitamins; R97.20 Elevated prostate specific antigen [PSA]
CPT/HCPCS: 36415; 80053; 80061; 82043; 82607; 83036; 83540; 84153; 85027

== ENCOUNTER → 2024-10-25 | Outpatient (CLI) | payer MEDICARE, OTHER, SELFPAY ==
[2024-10-05 12:47] VITALS: BMI 29.0
[2024-10-25 17:15] LABS: Vitamin D,25 Hydroxy 70.5 ng/mL (30-100)
== END | disposition home or self-care (01) ==
LOC: MFPLAB 12:04
PROVIDERS: PCP Family Medicine; Visit Provider Family Medicine
DX: E11.9 Type 2 diabetes mellitus without complications (principal); E55.9 Vitamin D deficiency, unspecified
CPT/HCPCS: 36415; 82306; 84403

== ENCOUNTER 2024-12-02 09:30 | Outpatient (RCR) | payer MEDICARE, OTHER, SELFPAY ==
[2024-10-05 12:47] VITALS: BMI 29.0
--- NOTE | 2024-10-25 15:53 | HP.PTEVAL ---
Patient's Visit Information Visit Information Visit Information: TODD ROSARIO is a 84 year old M referred to Physical Therapy by Dr. Ramu Martinez DO with a diagnosis of R knee DJD. Date of Evaluation: 10/25/24 Physical Therapist: Jonathan Rosales, DPT, OCS, CSCS Visit Plan Frequency: 2x /Week Duration: 4-6 Weeks Plan: 2x/week for 4 -6 weeks as needed for 1. monitor tolerance to injection R knee, monitor HEP of quad and HS stretch and R knee ROM. 2. teach gym based LE and core and postural strength program in gym and work to I as safety allows. 3. May do leg pull R and STM to R upper leg muscles if still painful after injection. Incras R knee flexion. IE HEP:Instruct HEP of HS with OP 10x HS stretch strapped 30 5x. quad stretch supine 30 sec 5x HO given Subjective Subjective: R leg gets weakr and weaker and it hurts R knee 1-3/10. 0/10 at rest. Hurt yesterday walking in living room. Sleep is not interrupted. Went to Dr. Haskins possibly to get a new knee. It has been hurting for a year. Was trying a different machine that he was not used to and it did not go well. Activitiees at home are OK but avoids raking yard and mowing grass. 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 M and R is at [facility] for PD class. Friday is here at for PD class. Pain R knee: Pain Intensity (Out of 10): 1 Pain Intensity Range: 0 and 3 Objective Objective: Walks back to PT I without AD with short steps and parkinson like small shuffle, flat affect. Transfer without UE I chair and bed. Steps are reciprocal b ut R knee painful especially descending and needs railing for safety. quads and HS max tight B with -35 90/90 test and quad tightness at 90 knee flexion prone. AROM R knee -2 to 102 degrees, pain with OP. L knee is 0-115. hip aROM WFL B as is ankle(0 DF). strength core 3+/5, hip abd and ext 4-/5, flexion hips 4-/5. knee flexion/ext 4-/5. ankle 4/5 + bounce home R and + patellar grind. became painful R knee afteer 250 feet walking today. Injection will be tomorrow then he will be out of town and wishes to start PT upon his return. Balance/Special Test Scores Lower Extremity Functional Score: 44 TUG Test Time Seconds: 13 30 Second Chair Rise Test Seconds: 11 Goals Goal 1:: 13 30 SSTS to improve strnggth adn funciton Goal Time Frame: 4-6 Weeks Goal 2:: I aoppropriate gym based ex for strengtheneing LE and core to complement current PD program. Goal Time Frame: 4-6 Weeks Goal 3:: Pain in knee 0-08/27 at all times and 80% improved. Goal Time Frame: 4-6 Weeks Rehabilitation Potential Physical Therapy Diagnosis: degeneration in R knee limiting motion, flexibility and strength limiting funciton Anticipated Interventions Patient/Client Instruction: Educate patient on: Condition and Plan of Care For the Purpose of:: To decrease pain, To increase ROM, To improve nutrient delivery to tissue, To improve muscle performance and motor function and To increase tolerance to activity/condition/position Therapeutic Exercise to Include: Strength training, Postural training and Flexibilty training For the Purpose of:: To decrease pain, To improve nutrient delivery to tissue, To improve muscle performance and motor function and To increase tolerance to activity/condition/position Manual Therapy Techniques to Include: Mobilization, Passive ROM and Soft tissue mobilization For the Purpose of:: To decrease pain and To increase ROM Text: Thank you for the opportunity to evaluate your patient. For Medicare and Medicare HMO plans, please review the plan of care and approve it. It will need to be FAXED BACK to us at [phone] for Medicare purposes. For Medicare only, by signing this I certify the plan of care. Please let me know if there are questions or concerns regarding this plan of care. Physician Signature: Date:
--- NOTE | 2024-12-02 10:25 | HP.PTDCSUM ---
Discharge Summary D/C summary: It has been my pleasure to treat TODD ROSARIO referred by Dr. Ramu Martinez DO, with the diagnosis of R knee DJD for a total of 9 visit(s). Discharge Date: 12/02/24 Please see the following information for a summary of their discharge status. Subjective Subjective: present. Doing OK. Getting stronger. No falls lately, balance . Knee is not painful. Ready to try on his own. Pain R knee: Pain Intensity (Out of 10): 0 Overall Improvement % Improvement: 50 Objective Objective/Function: Improved 30 SSTS and FGA above normal for age. Doing well using cane to get around. Feels like he can continue on his own in gym 2x/week when is here for class. Goals Goal 1:: 13 30 SSTS to improve benito santacruz Goal Progress: Goal Met Goal 2:: I aoppropriate gym based ex for strengtheneing LE and core to complement current PD program. Goal Progress: Goal Met Goal 3:: Pain in knee 0-1/10 at all times and 80% improved. Goal Progress: Goal Met Plan Plan: d/c D/C Information d/c sentence: If there are questions or concerns regarding this patient's physical therapy, please feel free to call me at [phone]. Thank you for the referral of this patient. Sincerely, Jonathan Rosales, DPT, OCS, CSCS Balance/Gait/Functional tests Balance/Special Test Scores Functional Gait Assessment Score: 24 % Disability: 20.0000 Lower Extremity Functional Score: 36 TUG Test Time Seconds: 13 Tug Test: <20 sec.=mostly independent 30 Second Chair Rise Test Seconds: 14 Improvement % Improvement: 50
== END 2024-12-02 10:32 | disposition home or self-care (01) ==
LOC: PT 09:30
PROVIDERS: PCP Family Medicine; Referring Provider Orthopaedic Surgery; Visit Provider Orthopaedic Surgery
DX: M17.11 Unilateral primary osteoarthritis, right knee (principal)
CPT/HCPCS: 97110; 97161; 97164

== ENCOUNTER → 2025-05-02 | Outpatient (CLI) | payer MEDICARE, OTHER, SELFPAY ==
[2024-10-05 12:47] VITALS: BMI 29.0
--- NOTE | 2025-05-02 15:06 | ECHOCS_ITS ---
Reason For Study Reason For Study: Dyspnea/SOB Procedure This was a 2D Doppler, Color Flow transthoracic echocardiogram. The study was technically difficult. Contrast injection was performed. Exam performed in department. Left Ventricle Normal LV size. Left ventricular systolic function is normal. Stage 1 diastolic dysfunction. The left ventricular ejection fraction is 55 %. Right Ventricle Normal RV size. Normal systolic function. Atria The left atrium is moderately enlarged. The right atrium is mildly enlarged. Mitral Valve The mitral valve is structurally normal. No prolapse or stenosis seen. Mild (1+) mitral valve insufficiency. Tricuspid Valve Normal tricuspid valve. Mild (1+) tricuspid valve insufficiency. Pulmonary artery systolic pressure is 25 mmHg. Aortic Valve Trisinus/trileaflet aortic valve. Trivial aortic valve insufficiency. Pulmonic Valve Normal pulmonic valve. Mild (1+) pulmonic valve insufficiency. Great Vessels Normal sized aortic root. Pericardium/Pleural No pericardial effusion. Medication 22 gauge I.V. with prn adaptor inserted into right arm. Diluted definity 2ml given slow IV push to enhance endocardial definition. MMode/2D Measurements & Calculations LVIDd: 4.5 cm IVSd: 1.0 cm Ao root diam: 3.4 cm LVIDs: 3.0 cm LVPWd: 1.1 cm LA dimension: 4.5 cm RVDd: 3.1 cm FS: 34.5 % LAV(MOD-bp): 50.0 ml LVAd ap4: 33.1 cm2 SV(MOD-sp4): 68.1 ml LAV(MOD-bp) Indexed: 26.1 ml/m2 LVLd ap4: 8.0 cm SI(MOD-sp4): 35.6 ml/m2 LAV(MOD-sp2): 53.1 ml EDV(MOD-sp4): 113.6 ml LAV(MOD-sp4): 46.6 ml EDV(sp4-el): 117.0 ml LVAs ap4: 18.9 cm2 LVLs ap4: 6.5 cm ESV(MOD-sp4): 45.5 ml ESV(sp4-el): 46.9 ml EF(MOD-sp4): 60.0 % EF(sp4-el): 60.0 % SV(sp4-el): 70.2 ml LA A4 area: 17.0 cm2 LA dimension(2D): 4.4 cm RA A4 area: 15.5 cm2 Time Measurements MV dec time: 0.23 sec Doppler Measurements & Calculations MV E max michael: 60.1 cm/sec Lat Peak E' Michael: 12.1 cm/sec Med Peak E' Michael: 7.0 cm/sec MV A max michael: 59.0 cm/sec E/E' lat: 5.0 E/E' med: 8.5 MV E/A: 1.0 MV V2 max: 78.6 cm/sec MV P1/2t max michael: 75.7 cm/sec Ao V2 max: 114.8 cm/sec MV max P.5 mmHg MV P1/2t: 88.6 msec Ao max P.3 mmHg MV V2 mean: 38.1 cm/sec MV dec slope: 250.2 cm/sec2 Ao V2 mean: 84.4 cm/sec MV mean P.73 mmHg MVA(P1/2t): 2.5 cm2 Ao mean P.2 mmHg MV V2 VTI: 34.4 cm Ao V2 VTI: 31.2 cm AV (velocity ratio): 0.64 LV V1 max: 86.8 cm/sec MR max michael: 443.5 cm/sec PA V2 max: 81.7 cm/sec LV V1 max P.0 mmHg MR max P.7 mmHg LV V1 mean P.5 mmHg LV V1 mean: 55.2 cm/sec LV V1 VTI: 20.1 cm TR max michael: 236.5 cm/sec PI dec slope: 96.4 cm/sec2 TR max P.4 mmHg ECHO/Echo Complete W/ Contrast Interpretation Summary The left ventricular ejection fraction is 55 %.. Stage 1 diastolic dysfunction. Mild (1+) mitral valve insufficiency. Mild (1+) tricuspid valve insufficiency. The left atrium is moderately enlarged. The right atrium is mildly enlarged. Contrast injection was performed. Ordering Physician: Arian Richter V Referring Physician: Arian Richter V Performed By: Aris Fernandes RCS
== END | disposition home or self-care (01) ==
LOC: CVS 15:05
PROVIDERS: PCP Family Medicine; Referring Provider Internal Medicine Pulmonary Disease; Visit Provider Internal Medicine Pulmonary Disease
DX: R06.00 Dyspnea, unspecified (principal)
CPT/HCPCS: 93306; Q9957; A4216; C8929

== ENCOUNTER 2025-05-18 15:27 | Outpatient (CLI) | payer MEDICARE, OTHER, SELFPAY ==
[2024-10-05 12:47] VITALS: BMI 29.0
[2025-05-18 17:59] LABS: Hematocrit 37.3 % (40-54); Hemoglobin 12.6 g/dL (13.0-16.5); Immature Granulocytes Count 0.030 X10^3/uL (0.0-0.0); Mean Corp Hgb Conc 33.8 g/dL (32-36); Mean Corpuscular Volume 96.1 fL (80-94); Mean Platelet Vol. 10.1 fl (6.2-12.0); NRBC Flagged by Analyzer 0 % (0-5); Platelet Count 198 K/mm3 (150-450); RBC Distribution Width CV 12.9 % (11.6-14.6); RBC Distribution Width SD 45.2 fl (35.1-43.9); Red Blood Count 3.88 M/mm3 (4.6-6.2); White Blood Count 5.8 K/mm3 (4.4-11.0)
[2025-05-18 18:31] LABS: AST(SGOT) 16 U/L (<=37); Alanine Aminotransfer ALT/SGPT 8 U/L (<=46); Albumin, Serum 4.2 g/dL (3.4-4.8); Alkaline Phosphatase 50 U/L (40-129); Anion Gap 11 (5-15); BUN 25 mg/dL (4-19); BUN/Creat Ratio 22.7 RATIO (10-20); Calcium,Total 9.4 mg/dL (7.6-11.0); Carbon Dioxide 24.5 mmol/L (21.0-32.0); Chloride 103 mmol/L (98-108); Globulin 2.3 g/dL (2.2-4.2); Glucose 122 mg/dL (70-99); Iron 78 ug/dL (65-175); Potassium 5.0 mmol/L (3.3-5.1); Vitamin B12 1745 pg/mL (180-914); Vitamin D,25 Hydroxy 60.9 ng/mL (30-100)
--- NOTE | 2025-05-20 09:29 | EKG12_ITS ---
Test Reason : CP Blood Pressure : */* mmHG Vent. Rate : 65 BPM Atrial Rate : 65 BPM P-R Int : 168 ms QRS Dur : 108 ms QT Int : 416 ms P-R-T Axes : 65 -5 30 degrees QTcB Int : 432 ms Normal sinus rhythm Incomplete left bundle branch block Borderline ECG Confirmed by GUMARO GONZALEZ MD ([id number]), avid editor PRERNA HUGGINS [id number]) on 05/23/2025 8:53:03 AM Referred By: BRISEIDA Confirmed By: GUMARO GONZALEZ MD
== END 2025-05-18 23:59 | disposition home or self-care (01) ==
LOC: MFPLAB 15:29
PROVIDERS: PCP Family Medicine; Visit Provider Family Medicine
DX: E11.59 Type 2 diabetes mellitus with other circulatory complications (principal); R79.89 Other specified abnormal findings of blood chemistry; E55.9 Vitamin D deficiency, unspecified; E53.8 Deficiency of other specified B group vitamins
CPT/HCPCS: 36415; 80053; 82306; 82607; 83540; 84403; 84443; 85025; 93005

== ENCOUNTER → 2025-05-23 | Outpatient (CLI) | payer MEDICARE, OTHER, SELFPAY ==
[2024-10-05 12:47] VITALS: BMI 29.0
[2025-05-25 15:08] LABS: PSA, Free 0.56 ng/mL; PSA, Free % 9.8 % (.); PSA, Total Ultrasensitive 5.720 ng/mL (0.000-4.000)
== END | disposition home or self-care (01) ==
LOC: MFPLAB 12:10
PROVIDERS: PCP Family Medicine; Visit Provider Family Medicine
DX: R97.20 Elevated prostate specific antigen [PSA] (principal)
CPT/HCPCS: 36415; 84153; 84154

== ENCOUNTER → 2025-07-29 | Outpatient (CLI) | payer MEDICARE, OTHER, SELFPAY ==
[2024-10-05 12:47] VITALS: BMI 29.0
== END | disposition home or self-care (01) ==
LOC: MTLAB 12:52
PROVIDERS: PCP Family Medicine; Referring Provider Family Medicine; Visit Provider Family Medicine
DX: Z13.1 Encounter for screening for diabetes mellitus (principal)
CPT/HCPCS: 36415; 83036; 84403